=== PATIENT | male | born 1935 | race Caucasian/White ===

== ENCOUNTER → 2018-01-08 | Outpatient (CLI) | payer MEDICARE, OTHER ==
[~2018-01-08] MED LIST: ASPIRIN PO; CO Q-10100 MG PO; DIOVAN PO; FISH OIL PO; GABAPENTIN300 MG PO; HUMALOG; HUMALOG INSULIN PUMP SC; VICODIN 5-5001 EACH PO
--- NOTE | 2018-01-08 17:11 | Diagnostic Imaging Report ---
PROCEDURE: CT CHEST WITHOUT CONTRAST CT scan of the chest WITHOUT intravenous contrast, using standard protocol. TECHNIQUE: The chest was scanned utilizing a multidetector helical scanner from the apex to the level of the adrenal glands. No IV contrast was administered per physician's request. Coronal and sagittal multiplanar reformations were obtained. COMPARISON: DX, CHEST 2 VIEWS, 04/05/2010, 16:19. INDICATIONS: SHORTNESS OF BREATH FINDINGS: Lines/tubes: None. Lungs and Airways: Subpleural reticulation in the upper and lower lobes, with scattered areas of subpleural cystic changes, likely representing focal honeycombing. Associated traction bronchiectasis, worse in the left upper lobe/lingula (series 3, image 67). No pulmonary nodules, masses, or consolidation.. No significant groundglass opacities. Airways are clear, without endobronchial lesions. Pleura: No effusion, or pneumothorax. Heart and mediastinum: Thyroid is unremarkable. Cardiomegaly. Extensive atherosclerotic calcification of the coronary arteries. Mild calcification of the thoracic aorta and arch branches. The aorta is non-aneurysmal. The main pulmonary artery measures approximately 3.5 cm. Lymph nodes: No mediastinal, hilar, or axillary adenopathy. Abdomen: Limited views of the upper abdomen show no abnormality within the visualized spleen and adrenal glands. Areas of decreased attenuation in the hepatic parenchyma, predominantly in the right lobe, likely reflect geographic steatosis. Bones: No aggressive lytic lesions. Multilevel degenerative disc changes in the thoracic spine. Soft tissues are grossly unremarkable. IMPRESSION: 1. findings consistent with pulmonary fibrotic changes. No nodules, masses, or consolidation. 2. Cardiomegaly with extensive calcification of the coronary arteries. Ryan Warner M.D. Dictated by: Ryan Warner M.D. on 01/08/2018 at 17:13 Electronically approved by: Ryan Warner M.D. on 01/08/2018 at 17:13
== END ==
LOC: CT 13:32
PROVIDERS: ATTEND Internal Medicine Critical Care Medicine
DX: R91.8 Other nonspecific abnormal finding of lung field (principal); R06.02 Shortness of breath; I51.7 Cardiomegaly; I25.10 Atherosclerotic heart disease of native coronary artery without angina pectoris
CPT/HCPCS: 71250

== ENCOUNTER 2018-09-17 11:51 | Inpatient (IN) | payer MEDICARE, OTHER ==
[~2018-09-17] VITALS: Ht 177.8 cm; Wt 117.5 kg
--- OUTSIDE RECORDS SUMMARY | 2018-09-17 11:55 | XMS REPORT ---
Author Author [facility] Address Unknown Phone Unavailable Care Team Providers Care Grip Wrapper Name Role Phone CHELLY LIN Unavailable Unavailable Problems This patient has no known problems. Allergies, Adverse Reactions, Alerts This patient has no known allergies or adverse reactions. Medications This patient has no known medications. Results Test Description Test Time Test Comments Text Results Atomic Results Result Comments CT CHEST WO [place] [address] Patient Name: TITI CHEEK JR MR #: [id number] : 1935 Age/Sex: 82/M Req #: [id number] Adm Physician: Ordered by: CHELLY LIN MD Report #: [id number] Location: CT Room/Bed: Procedure: [id number] CT/CT CHEST WO Exam Date: 01/08/18 Exam Time: 1402 REPORT STATUS: Signed PROCEDURE: CT CHEST WITHOUT CONTRAST CT scan of the chest WITHOUT intravenous contrast, using standard protocol. TECHNIQUE: The chest was scanned utilizing a multidetector helical scanner from the apex to the level of the adrenal glands. No IV contrast was administered per physician's request. Coronal and sagittal multiplanar reformations were obtained. COMPARISON: DX, CHEST 2 VIEWS, 04/05/2010, 16:19. INDICATIONS: SHORTNESS OF BREATH FINDINGS: Lines/tubes: None. Lungs and Airways: Subpleural reticulation in the upper and lower lobes, with scattered areas of subpleural cystic changes, likely representing focal honeycombing. Associated traction bronchiectasis, worse in the left upper lobe/lingula (series 3, image 67). No pulmonary nodules, masses, or consolidation.. No significant groundglass opacities. Airways are clear, without endobronchial lesions. Pleura: No effusion, or pneumothorax. Heart and mediastinum: Thyroid is unremarkable. Cardiomegaly. Extensive atherosclerotic calcification of the coronary arteries. Mild calcification of the thoracic aorta and arch branches. The aorta is non-aneurysmal. The main pulmonary artery measures approximately 3.5 cm. Lymph nodes: No mediastinal, hilar, or axillary adenopathy. Abdomen: Limited views of the upper abdomen show no abnormality within the visualized spleen and adrenal glands. Areas of decreased attenuation in the hepatic parenchyma, predominantly in the right lobe, likely reflect geographic steatosis. Bones: No aggressive lytic lesions. Multilevel degenerative disc changes in the thoracic spine. Soft tissues are grossly unremarkable. IMPRESSION: 1. findings consistent with pulmonary fibrotic changes. No nodules, masses, or consolidation. 2. Cardiomegaly with extensive calcification of the coronary arteries. Lyudmila Warner M.D. Dictated by: Lyudmila Warner M.D. on 01/08/2018 at 17:13 Electronically approved by: Lyudmila Warner M.D. on 01/08/2018 at 17:13 Dictated By: LYUDMILA WARNER MD [id number] Transcribed By: MARIE on 01/08/18 1713 COPY TO: CHELLY LIN MD
--- OUTSIDE RECORDS SUMMARY | 2018-09-17 11:55 | XMS REPORT | Clinical Summary ---
Author Author [facility] Address Unknown Phone Unavailable Care Team Providers Care Senior Instrumentation Engineer Name Role Phone Asked, No Pcp PCP Unavailable Allergies No Known Allergies Medications End Date Status Medication Sig Dispensed Refills Start Date Active levothyroxine (SYNTHROID, Take 25 mcg 0 LEVOXYL) 25 mcg tablet by mouth nightly. Active clopidogrel (PLAVIX) 75 Take 75 mg by 0 mg tablet mouth nightly. Active HYDROcodone-acetaminophen Take 1 tablet 0 (NORCO) 5-325 mg per by mouth tablet every 6 (six) hours as needed for moderate pain. Active cetirizine (ZyrTEC) 5 MG Take 5 mg by 0 tablet mouth daily. Active insulin syringe-needle 1 Device 2 60 each 3 U-100 0.3 mL 31 gauge x (two) times a 8 01/09 syringe day. Active blood sugar diagnostic Check BG 4 120 strip 3 strips (FREESTYLE TEST) times a day 8 strip test strips 02/23/2019 Active insulin 70/30 NPH and Inject 40 10 mL 12 regular human (NovoLIN Units under 8 70/30 U-100 Insulin) 100 the skin unit/mL (70-30) injection daily before breakfast. Take 25 units DC before breakfast and 14 units before dinner 02/23/2019 Active atorvastatin (LIPITOR) 80 Take 1 tablet 30 tablet 11 MG tabletIndications: (80 mg total) 8 Chest pain, unspecified by mouth type daily. 02/23/2019 Active metoprolol tartrate Take 1 tablet 60 tablet 11 (LOPRESSOR) 25 mg tablet (25 mg total) 8 by mouth 2 (two) times a day. Active apixaban (ELIQUIS) 5 mg Take 1 tablet 30 tablet 0 tablet (5 mg total) 8 by mouth 2 (two) times a day. 02/23/2019 Active famotidine (PEPCID) 20 MG Take 1 tablet 60 tablet 11 tablet (20 mg total) 8 by mouth 2 (two) times a day. 02/24/2019 Active omega-3 acid ethyl esters Take 2 60 capsule 11 (LOVAZA) 1 gram capsule capsules (2 g 8 total) by mouth daily. 02/23/2018 Discontinued atorvastatin (LIPITOR) 40 Take 40 mg by 0 MG tablet mouth nightly. 02/23/2018 Discontinued insulin NPH (HumuLIN-N) Inject 20 0 100 unit/mL injection Units under the skin every 12 (twelve) hours. 02/23/2018 Discontinued DOCOSAHEXANOIC ACID/EPA Take 1 tablet 0 (FISH OIL ORAL) by mouth daily. 02/23/2018 Discontinued insulin 70/30 NPH and Inject 40 10 mL 12 regular human (NovoLIN Units under 8 70/30 U-100 Insulin) 100 the skin unit/mL (70-30) injection daily before breakfast. Take 25 units DC before breakfast and 14 units before dinner Active Problems Problem Noted Date Transient cerebral ischemia 02/22/2018 Essential hypertension 02/22/2018 Type 2 diabetes mellitus 02/22/2018 Chest pain 05/12/2017 Resolved Problems Problem Noted Date Resolved Date Right sided weakness 02/21/2018 02/23/2018 Encounters Care Team Description Date Type Specialty Kumar Rojas NP 04/12/2018 Refill Endocrinology Nestor Bradford MD 03/11/2018 Refill Neurology John Espinosa MD Shehata, Mohamed M., MD Chest pain, unspecified type (Primary Dx); Right sided weakness; Numbness; Transient cerebral ischemia, unspecified type; Essential hypertension 02/21/2018 Hospital Neurology - Encounter 02/23/2018 Jonathan Richardson MD Diabetes mellitus without complication (Primary Dx) 12/21/2017 Lab Lab Jonathan Richardson MD Iron deficiency (Primary Dx); 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 Lab Lab Tracey Richardson DPM Pain in extremity, unspecified extremity 12/14/2017 Hospital Radiology Encounter Tracey Richardson DPM Pain in extremity, unspecified extremity 12/14/2017 Hospital Radiology Encounter Tracey Richardson, DPJaspal Pain in extremity, unspecified extremity (Primary Dx) 12/14/2017 Transcribe Access Orders after 09/16/2017 Immunizations Name Dates Previously Given Next Due FLUCELVAX QUAD PF (0.5mL 05/14/2017 syringe) Social History Date Tobacco Use Types Packs/Day Years Used Never Smoker Alcohol Use Drinks/Week oz/Week Comments Yes Sex Assigned at Date Recorded Not on file Industry Job Start Date Occupation Not on file Not on file Not on file Travel End Travel History Travel Start No recent travel history available. Last Filed Vital Signs Time Taken Vital Sign Reading 02/23/2018 11:40 AM CDT Blood Pressure 170/84 02/23/2018 11:40 AM CDT Pulse 71 02/23/2018 11:40 AM CDT Temperature 36.4 C (97.5 F) 02/23/2018 11:40 AM CDT Respiratory Rate 18 02/23/2018 11:40 AM CDT Oxygen Saturation 95% - Inhaled Oxygen - Concentration 02/22/2018 12:15 AM CDT Weight 110 kg (242 lb) 02/22/2018 12:15 AM CDT Height 179.1 cm (5' 10.5") 02/22/2018 12:15 AM CDT Body Mass Index 34.23 Plan of Treatment Health Maintenance Due Date Last Done Comments DIABETIC RETINAL EYE EXAM 1935 DIABETIC FOOT EXAM 1945 URINE MICROALBUMIN 1947 SHINGLES VACCINES (1 of 1987 2) PNEUMOCOCCAL 2002 POLYSACCHARIDE VACCINE AGE 65 AND OVER PNEUMOCOCCAL-13 2002 INFLUENZA VACCINE 03/27/2018 05/14/2017 Procedures Comments Procedure Name Priority Date/Time Associated Diagnosis POC GLUCOSE Routine 02/23/2018 11:38 AM CDT POC GLUCOSE Routine 02/23/2018 8:50 AM CDT ZZESTIMATED GFR Routine 02/23/2018 4:22 AM CDT BASIC METABOLIC PANEL Routine 02/23/2018 4:22 AM CDT HC COMPLETE BLD COUNT Routine 02/23/2018 W/AUTO DIFF 4:22 AM CDT MAGNESIUM LEVEL Routine 02/23/2018 4:22 AM CDT POC GLUCOSE Routine 02/22/2018 9:03 PM CDT POC GLUCOSE Routine 02/22/2018 3:52 PM CDT POC GLUCOSE Routine 02/22/2018 12:12 PM CDT ECHOCARDIOGRAM 2D Routine 02/22/2018 COMPLETE W MMODE SPECTRAL 10:52 AM CDT COLOR DOPPLER ([id number]) MRI BRAIN WO CONTRAST STAT 02/22/2018 10:13 AM CDT SYPHILIS TREPONEMAL IGG Routine 02/22/2018 8:53 AM CDT FOLATE LEVEL Routine 02/22/2018 8:52 AM CDT VITAMIN B12 LEVEL Routine 02/22/2018 8:52 AM CDT POC GLUCOSE Routine 02/22/2018 7:55 AM CDT SYPHILIS TREPONEMAL IGG Routine 02/22/2018 6:40 AM CDT FOLATE LEVEL Routine 02/22/2018 6:40 AM CDT VITAMIN B12 LEVEL STAT 02/22/2018 6:40 AM CDT POC GLUCOSE Routine 02/22/2018 6:31 AM CDT AST (SGOT) Routine 02/22/2018 4:00 AM CDT MAGNESIUM LEVEL Routine 02/22/2018 4:00 AM CDT ZZESTIMATED GFR Routine 02/22/2018 4:00 AM CDT T3, FREE Routine 02/22/2018 4:00 AM CDT T4, FREE Routine 02/22/2018 4:00 AM CDT THYROID STIMULATING Routine 02/22/2018 HORMONE 4:00 AM CDT LIPID PANEL Routine 02/22/2018 4:00 AM CDT HEMOGLOBIN A1C Routine 02/22/2018 4:00 AM CDT BASIC METABOLIC PANEL Routine 02/22/2018 4:00 AM CDT HC COMPLETE BLD COUNT Routine 02/22/2018 W/AUTO DIFF 4:00 AM CDT POC GLUCOSE Routine 02/22/2018 12:34 AM CDT XR CHEST 1 VW PORTABLE STAT 02/21/2018 11:38 PM CDT C-REACTIVE PROTEIN Routine 02/21/2018 10:42 PM CDT SEDIMENTATION RATE Routine 02/21/2018 10:42 PM CDT THYROID STIMULATING Routine 02/21/2018 HORMONE 10:42 PM CDT HOMOCYSTINE, PLASMA Routine 02/21/2018 10:42 PM CDT HEMOGLOBIN A1C Routine 02/21/2018 10:42 PM CDT LIPID PANEL Routine 02/21/2018 10:[address] ANGIOGRAM HEAD W WO STAT 02/21/2018 CONTRAST 10:[address] ANGIOGRAM NECK W WO STAT 02/21/2018 CONTRAST 10:38 PM CDT URINE DRUGS OF ABUSE STAT 02/21/2018 SCREEN 10:38 PM CDT URINALYSIS SCREEN AND Routine 02/21/2018 MICROSCOPY, WITH REFLEX 10:38 PM CDT TO CULTURE ECG 12-LEAD STAT 02/21/2018 10:37 PM CDT URINE CULTURE Routine 02/21/2018 10:[address] HEAD WO CONTRAST STAT 02/21/2018 10:11 PM CDT POC GLUCOSE Routine 02/21/2018 10:09 PM CDT ZZESTIMATED GFR Routine 02/21/2018 10:09 PM CDT B NATRIURETIC PEPTIDE Routine 02/21/2018 10:09 PM CDT TROPONIN Routine 02/21/2018 10:09 PM CDT COMPREHENSIVE METABOLIC Routine 02/21/2018 PANEL 10:09 PM CDT PARTIAL THROMBOPLASTIN Routine 02/21/2018 TIME (PTT) 10:09 PM CDT PROTHROMBIN TIME WITH INR Routine 02/21/2018 10:09 PM CDT HC COMPLETE BLD COUNT Routine 02/21/2018 W/AUTO DIFF 10:09 PM CDT HEMOGLOBIN A1C Routine 12/21/2017 Diabetes mellitus without 12:23 PM CDT complication ZZESTIMATED GFR Routine 12/17/2017 10:50 AM CDT CBC HEMOGRAM Routine 12/17/2017 Iron deficiency 10:50 AM CDT 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 POC glucose 142 (H) 65 - 99 mg/dL [facility] DEPARTMENT OF Comment: [facility] Notified RN GENOMIC MEDICINE Meter ID: [id number] Street Light Lamp Cleaner: Jin Garcia Performing Organization Address City/[facility]/Zipcode Phone Number [address] [address] PATHOLOGY AND GENOMIC MEDICINE * Estimated GFR (02/23/2018 4:22 AM CDT) Only the most recent of 4 results within the time period is included. GFR Non Af Amer 81 mL/min/1.73 m2 [facility] DEPARTMENT OF PATHOLOGY AND GENOMIC MEDICINE GFR Af Amer >90 mL/min/1.73 m2 [facility] DEPARTMENT OF Comment: PATHOLOGY AND Chronic kidney disease: <60 GENOMIC MEDICINE mL/min/1.73m2 Kidney failure: <15 mL/min/1.73m2 The estimated GFR is calculated from the IDMS-traceable Modification of Diet in Renal Disease Equation. The accuracy of the calculation is poor when the creatinine is normal. Calculated values >90 mL/min/1.73m2 are not reported. This equation has not been validated in children (<18 years), women, the elderly (>70 years), or ethnic groups other than Caucasians and Americans. Specimen Plasma specimen Performing Organization Address City/State/Zipcode Phone Number [address] [address] PATHOLOGY AND [facility] * CBC with platelet and differential (02/23/2018 4:22 AM CDT) Only the most recent of 3 results within the time period is included. WBC 9.31 4.50 - 11.00 k/uL [facility] DEPARTMENT OF PATHOLOGY AND GENOMIC MEDICINE RBC 4.84 4.40 - 6.00 m/uL [facility] DEPARTMENT OF PATHOLOGY AND GENOMIC MEDICINE HGB 15.5 14.0 - 18.0 g/dL [facility] DEPARTMENT OF PATHOLOGY AND GENOMIC MEDICINE HCT 45.3 41.0 - 51.0 % [facility] DEPARTMENT OF PATHOLOGY AND GENOMIC MEDICINE MCV 93.6 82.0 - 100.0 fL [facility] DEPARTMENT OF PATHOLOGY AND GENOMIC MEDICINE MCH 32.0 27.0 - 34.0 pg [facility] DEPARTMENT OF PATHOLOGY AND GENOMIC MEDICINE MCHC 34.2 31.0 - 37.0 g/dL [facility] DEPARTMENT OF PATHOLOGY AND GENOMIC MEDICINE RDW - SD 44.5 37.0 - 55.0 fL [facility] DEPARTMENT OF PATHOLOGY AND GENOMIC MEDICINE MPV 9.6 8.8 - 13.2 fL [facility] DEPARTMENT OF PATHOLOGY AND GENOMIC MEDICINE Platelet count 186 150 - 400 k/uL [facility] DEPARTMENT OF PATHOLOGY AND GENOMIC MEDICINE Nucleated RBC 0.00 /100 WBC [facility] DEPARTMENT OF PATHOLOGY AND GENOMIC MEDICINE Neutrophils 54.4 39.0 - 69.0 % [facility] DEPARTMENT OF PATHOLOGY AND GENOMIC MEDICINE Lymphocytes 33.8 25.0 - 45.0 % [facility] DEPARTMENT OF PATHOLOGY AND GENOMIC MEDICINE Monocytes 8.9 0.0 - 10.0 % [facility] DEPARTMENT OF PATHOLOGY AND GENOMIC MEDICINE Eosinophils 1.9 0.0 - 5.0 % [facility] DEPARTMENT OF PATHOLOGY AND GENOMIC MEDICINE Basophils 0.6 0.0 - 1.0 % [facility] DEPARTMENT OF PATHOLOGY AND GENOMIC MEDICINE Immature granulocytes 0.4Comment: "Immature 0.0 - 1.0 % [facility] DEPARTMENT OF granulocytes" (promyelocytes, PATHOLOGY AND myelocytes, metamyelocytes) GENOMIC MEDICINE Specimen Blood Performing Organization Address City/[facility]/[place] [address] PATHOLOGY AND GENOMIC [facility] * Magnesium level (02/23/2018 4:22 AM CDT) Only the most recent of 2 results within the time period is included. Magnesium 2.3 1.6 - 2.4 mg/dL [facility] DEPARTMENT OF PATHOLOGY AND GENOMIC MEDICINE Specimen Plasma specimen Performing Organization Address City/[facility] [place] [address] PATHOLOGY AND [facility] * Basic metabolic panel (02/23/2018 4:22 AM CDT) Only the most recent of 3 results within the time period is included. Sodium 138 135 - 148 mEq/L [facility] DEPARTMENT OF PATHOLOGY AND GENOMIC MEDICINE Potassium 3.8 3.5 - 5.0 mEq/L [facility] DEPARTMENT OF PATHOLOGY AND GENOMIC MEDICINE Chloride 101 98 - 112 mEq/L [facility] DEPARTMENT OF PATHOLOGY AND GENOMIC MEDICINE CO2 23 (L) 24 - 31 mEq/L [facility] DEPARTMENT OF PATHOLOGY AND GENOMIC MEDICINE Anion gap 14@ANIO 7 - 15 mEq/L [facility] DEPARTMENT OF PATHOLOGY AND GENOMIC MEDICINE BUN 21 8 - 23 mg/dL [facility] DEPARTMENT OF PATHOLOGY AND GENOMIC MEDICINE Creatinine 0.9 0.7 - 1.2 mg/dL [facility] DEPARTMENT OF PATHOLOGY AND GENOMIC MEDICINE Glucose 131 (H) 65 - 99 mg/dL [facility] DEPARTMENT OF PATHOLOGY AND GENOMIC MEDICINE Calcium 9.2 8.8 - 10.2 mg/dL [facility] DEPARTMENT OF PATHOLOGY AND GENOMIC MEDICINE Specimen Plasma specimen Performing Organization Address City/State/Zipcode Phone Number [facility] DEPARTMENT OF [address] [place] [id number] PATHOLOGY AND GENOMIC MEDICINE * Echocardiogram complete w contrast and 3D if needed (02/22/2018 10:52 AM CDT) Narrative Performed At [facility] Echocardiography Report [id number] [facility], [facility] [address], [place] [address] Pat.Name:TITI MAY Pat.ID:[id number] St.Date: 02/22/2018 Refer.MD:NAZIA MOREL MD Exam Time: 11:25:00 AM Study Type:Routine Echo Height:70.47in Weight:242lb BSA: 2.28 m2 DOBAge:1935,82Y Sex: MALEBP:125/63 HR:63 bpmSonogrphr: DAYDAY [place] Pat. Stat.:Inpatient Room:[facility] Study Status:Final Echo Event ID:[id number] Order ID:[id number] Reason for Study:Chest Pain Procedures:2D Echo, Colorflow Doppler, Intravenous Optison Contrast Race:C SUMMARY: LV EF is moderately to severely depressed. Estimated EF is 25-29%. RV systolic function is normal. Diastolic dysfunction Grade I (Mild): Impaired relaxation with normal LV filling pressures. FINDINGS: LV: LV size is normal. There is moderate concentric LV hypertrophy.LV EF is moderately to severely depressed. Globalhypokinesis. Septal motion is paradoxical secondary toLBBB or conduction abnormality. Estimated EF is 25-29%. RV: RV size is normal. RV systolic function is normal. LA: LA volume is upper limits of normal. RA: RA size is normal. AO: Aortic root diameter is normal. ABIGAIL: There is an anterior space consistent with a prominent epicardialfat pad. AV: No structural AV abnormalities noted. MV: No structural MV abnormalities noted. PV: No structural PV abnormalities noted. TV: No structural TV abnormalities noted. Bashir: Diastolic dysfunction Grade I (Mild): Impaired relaxation withnormal LV filling pressures. Other:Insufficient TR jet to estimate PA systolic pressure. MEASUREMENTS: 2D Parasternal Long Deshler LVIDd5.6 cmIndex2.5 cm/m Ao Rtd 3.3 cm Index1.5 cm/m LVIDs4.8 cm LV Utnt370.9 g(122-174) LV%fs 15.3 % LVM Xprkv319.3 g/m2 IVSd 1.2 cmRWT0.5 LVPWd1.3 cm LA Sng Plane LA Area 23.6 cm2(8.8-23.4) LA Vol78.4 ml Index34.4 ml/m LA LngAx 5.9 cm Signed 02/22/2018 12:00 PM Clint Hand M.D. Procedure Note Interface, Radiology Results In - 02/22/2018 12:01 PM CDT Echocardiography Report [address] [place] [address] Pat.Name: TITI MAY Pat.ID: [id number] .Date: 02/22/2018 Refer.MD: NAZIA MOREL MD Exam Time: 11:25:00 AM Study Type:Routine Echo Height: 70.47in Weight: 242lb BSA: 2.28 m2 Age: 4 1935,82Y Sex: MALE BP: 125/63 HR: 63 bpm Sonogrphr: [place]DAY [place] Pat. Stat.:Inpatient Room: [facility] Study Status:Final Echo Event ID:[id number] Order ID: [id number] Reason for Study:Chest Pain Procedures:2D Echo, Colorflow Doppler, Intravenous Optison Contrast Race: C SUMMARY: LV EF is moderately to severely depressed. Estimated EF is 25-29%. RV systolic function is normal. Diastolic dysfunction Grade I (Mild): Impaired relaxation with normal LV filling pressures. FINDINGS: LV: LV size is normal. There is moderate concentric LV hypertrophy. LV EF is moderately to severely depressed. Global hypokinesis. Septal motion is paradoxical secondary to LBBB or conduction abnormality. Estimated EF is 25-29%. RV: RV size is normal. RV systolic function is normal. LA: LA volume is upper limits of normal. RA: RA size is normal. AO: Aortic root diameter is normal. ABIGAIL: There is an anterior space consistent with a prominent epicardial fat pad. AV: No structural AV abnormalities noted. MV: No structural MV abnormalities noted. PV: No structural PV abnormalities noted. TV: No structural TV abnormalities noted. Bashir: Diastolic dysfunction Grade I (Mild): Impaired relaxation with normal LV filling pressures. Other: Insufficient TR jet to estimate PA systolic pressure. MEASUREMENTS: 2D Parasternal Long Deshler LVIDd 5.6 cm Index 2.5 cm/m Ao Rtd 3.3 cm Index 1.5 cm/m LVIDs 4.8 cm LV Mass 303.9 g (122-174) LV%fs 15.3 % LVM Index 133.3 g/m2 IVSd 1.2 cm RWT 0.5 LVPWd 1.3 cm LA Sng Plane LA Area 23.6 cm2 (8.8-23.4) LA Vol 78.4 ml Index 34.4 ml/m LA LngAx 5.9 cm Signed 02/22/2018 12:00 PM Clint Hand M.D. Performing Organization Address [facility]/Zipcode Phone Number [facility] [address] [place] [address] * MRI Brain Wo Contrast (02/22/2018 10:13 AM CDT) Narrative Performed At [facility] EXAMINATION:MRI BRAIN WO CONTRAST CLINICAL HISTORY:Strokefollow up, CVA TIA COMPARISON: CT brain exam dated 02/21/2018. FINDINGS: Noncontrast MRI of the brain is interpreted. Diffusion imaging demonstrates no abnormal restricted diffusion. Minimal nonspecific T2 FLAIR signal changes in the cerebral white matter in keeping with minimal chronic small vessel ischemic change. No extra-axial collection or mass effect is seen. No hemorrhage is identified. The major vascular flow-voids are preserved. IMPRESSION: No evidence of recent infarct or other acute intracranial abnormality. [id number] Procedure Note Interface, Radiology Results Incoming - 02/22/2018 10:23 AM CDT EXAMINATION: MRI BRAIN WO CONTRAST CLINICAL HISTORY: Stroke follow up, CVA TIA COMPARISON: CT brain exam dated 02/21/2018. FINDINGS: Noncontrast MRI of the brain is interpreted. Diffusion imaging demonstrates no abnormal restricted diffusion. Minimal nonspecific T2 FLAIR signal changes in the cerebral white matter in keeping with minimal chronic small vessel ischemic change. No extra-axial collection or mass effect is seen. No hemorrhage is identified. The major vascular flow-voids are preserved. IMPRESSION: No evidence of recent infarct or other acute intracranial abnormality. [id number] Performing Organization Address [facility] Phone Number [facility] [address] [place] [address] * Syphilis treponemal IgG (02/22/2018 8:53 AM CDT) Only the most recent of 2 results within the time period is included. Syphilis treponemal IgG Non-reactiveComment: Non-reactive [facility] DEPARTMENT OF Non-reactive: No serological PATHOLOGY AND evidence of Syphilis infection GENOMIC MEDICINE Specimen Serum Performing Organization Address City/[facility] [place] [address] PATHOLOGY AND [facility] * Folate level (02/22/2018 8:52 AM CDT) Only the most recent of 2 results within the time period is included. Folate 16.0 4.8 - 24.2 ng/mL [facility] DEPARTMENT OF PATHOLOGY AND GENOMIC MEDICINE Specimen Serum Performing Organization Address City/[facility] Phone Number [address] [address] PATHOLOGY AND [facility] * Vitamin B12 level (02/22/2018 8:52 AM CDT) Only the most recent of 2 results within the time period is included. Vitamin B12 294 211 - 946 pg/mL [facility] DEPARTMENT OF Comment: PATHOLOGY AND Significant overlap exists GENOMIC MEDICINE between normal and deficiency states. However, most patients with deficiencies will have Serum B12 <200 pg/mL. Specimen Serum Performing Organization Address [facility] Phone Number [address] [address] PATHOLOGY AND [facility] * T3, free (02/22/2018 4:00 AM CDT) T3, free 2.7 2.4 - 4.2 pg/mL [facility] Comment: REFERENCE INTERVAL: Triiodothyronine, Free (Free T3) Access complete set of age- and/or gender-specific reference intervals for this test in the [facility] Test Directory ([employer]). Performed by [employer], [address] [place] [address] [email or web address], Ryder Chow MD - Lab. Director Specimen Serum Performing Organization Address [facility] Number [facility] [address] [address] * AST (SGOT) (02/22/2018 4:00 AM CDT) AST 20 10 - 50 U/L [facility] DEPARTMENT OF PATHOLOGY AND GENOMIC MEDICINE Specimen Plasma specimen Performing Organization Address [facility] Phone Number [address] [address] PATHOLOGY AND [facility] * Thyroid stimulating hormone (02/22/2018 4:00 AM CDT) Only the most recent of 2 results within the time period is included. TSH 2.55 0.27 - 4.20 uIU/mL [facility] DEPARTMENT OF PATHOLOGY AND GENOMIC MEDICINE Specimen Plasma specimen Performing Organization Address City/[facility] [place] [address] PATHOLOGY AND [facility] * T4, free (02/22/2018 4:00 AM CDT) T4, free 1.1 0.9 - 1.7 ng/dL [facility] DEPARTMENT OF PATHOLOGY AND [facility] Specimen Plasma specimen Performing Organization Address [facility] [place] [address] PATHOLOGY AND [facility] * Hemoglobin A1c (02/22/2018 4:00 AM CDT) Only the most recent of 3 results within the time period is included. Hemoglobin A1C 8.9 (H) 4.0 - 5.6 % [facility] DEPARTMENT OF Comment: PATHOLOGY AND HbA1c cutoffs for diagnosing GENOMIC MEDICINE diabetes: 4.0% - 5.6%=normal 5.7% - 6.4%=increased risk for diabetes (prediabetes) >=6.5%=diabetes Goals for glycemic control (ADA 2016) < 7.0%Target for non adults with diabetes. More or less stringent targets may be appropriate for individual patients. <7.5% Target for Children and adolescents with type 1 diabetes. Specimen Blood Performing Organization Address [facility] Phone Number [facility] [place] [place] [address] PATHOLOGY AND [employer] MEDICINE * Lipid panel (02/22/2018 4:00 AM CDT) Only the most recent of 2 results within the time period is included. Cholesterol 204 (H) <200 mg/dL [facility] DEPARTMENT OF PATHOLOGY AND GENOMIC MEDICINE Triglycerides 240 (H) <150 mg/dL [facility] DEPARTMENT OF PATHOLOGY AND GENOMIC MEDICINE HDL cholesterol 34 (L) >40 mg/dL [facility] DEPARTMENT OF PATHOLOGY AND GENOMIC MEDICINE LDL cholesterol 140 (H)Comment: Result <100 mg/dL [facility] DEPARTMENT OF obtained by direct LDL PATHOLOGY AND measurement GENOMIC MEDICINE Lipid panel SeeBelow [facility] DEPARTMENT OF interpretation Comment: PATHOLOGY AND Total Cholesterol GENOMIC MEDICINE (mg/dL) <200 Desirable 200-239Borderline -high >=240High Triglycerides (mg/dL) <150 Normal 150-199Borderline -high 200-499High >=500Very high HDL Cholesterol (mg/dL) <40Low (male) <40Low (female) LDL Cholesterol (mg/dL) <100 Optimal 100-129Near or above optimal 130-159Borderline -high 160-189High >=190Very high Risk Catergories that modify LDL goals. Risk Catergories LDL goal (mg/dL) CHD and CHD risk equivalent<100 (10-year risk >20%) Multiple (2+) risk factors <130 (10-year risk=<20%) 0-1 risk factors <160 (<10-year risk) Defining levels of lipids in metabolic syndrome Triglycerides >=150 mg/dL HDL Cholesterol Men <40 mg/dL Women <40 mg/dL Non-HDL cholesterol is a second target for therapy in persons with high triglycerides (>=200 mg/dL) Specimen Plasma specimen Performing Organization Address [facility] Phone Number [facility] DEPARTMENT OF [address] [place] [address] PATHOLOGY AND GENOMIC MEDICINE * XR Chest 1 Vw Portable (02/21/2018 11:38 PM CDT) Narrative Performed At Examination: XR CHEST 1 VW PORTABLE [facility] Clinical history: Chest Pain Comparison: August 11, 2017 Impression: 1. The cardiac silhouette is mildly enlarged, though vasculature is within normal limits. 2. There is no confluent infiltrate or effusion. 3. There is no acute osseous pathology. [facility]-[id number] Procedure Note Interface, Radiology Results Incoming - 02/21/2018 11:44 PM CDT Examination: XR CHEST 1 VW PORTABLE Clinical history: Chest Pain Comparison: August 11, 2017 Impression: 1. The cardiac silhouette is mildly enlarged, though vasculature is within normal limits. 2. There is no confluent infiltrate or effusion. 3. There is no acute osseous pathology. [facility]-[id number] Performing Organization Address [facility] Phone Number [facility] [address] [place] [address] * Homocystine, plasma (02/21/2018 10:42 PM CDT) Homocysteine 12.4 0.0 - 15.0 umol/L [facility] DEPARTMENT OF Comment: PATHOLOGY AND The risk for coronary vascular GENOMIC MEDICINE disease increases progressively with homocysteine concentration.A 3.4 times greater risk is associated with a homocysteine concentration of greater than 15.8 umol/L as compared to a concentration below 14.1 umol/L. Specimen Plasma specimen Performing Organization Address City/[facility]/[place] [address] PATHOLOGY AND GENOMIC MEDICINE * Sedimentation rate (02/21/2018 10:42 PM CDT) Sedimentation rate 7 0 - 10 mm/hr [facility] DEPARTMENT PATHOLOGY AND GENOMIC MEDICINE Specimen Blood Performing Organization Address [facility] [place] [address] PATHOLOGY AND GENOMIC MEDICINE * C-reactive protein (02/21/2018 10:42 PM CDT) CRP <0.30 0.00 - 0.50 mg/dL [facility] PATHOLOGY AND GENOMIC MEDICINE Specimen Plasma specimen Performing Organization Address [facility] Phone Number [facility] [place] [address] PATHOLOGY AND [facility] MEDICINE * CTA Head W Wo Contrast (02/21/2018 10:39 PM CDT) Narrative Performed At EXAMINATION:CT ANGIOGRAM HEAD W WO CONTRAST [facility] CLINICAL HISTORY:dizziness COMPARISON:Head CT on 02/21/2018. TECHNIQUE: Head CTA with multiplanar MIP and volumetric rendering after bolus intravenous iodinated contrast administration performed using radiation dose reduction techniques.Technical factors are evaluated and adjusted to ensure appropriate moderation of exposure.Automated dose management technology is applied to adjust radiation exposure while achieving a diagnostic quality image. FINDINGS: The anterior circulation is dominant with bilateral -type manager hospice with origins from prominent posterior communicating arteries. There is normal contrast enhancement with no significant stenosis or occlusion along bilateral intracranial ICAs, ACAs, MCAs, and. The anterior and posterior communicating arteries are unremarkable. The posterior circulation is hypoplastic with the nondominant left vertebral artery terminating into the left PICA. There is no significant stenosis or occlusion along bilateral vertebral arteries, basilar artery, and cerebellar arteries. 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 There is no evidence of cerebral aneurysm in the proximal [place]. There is no evidence of perfusion-weighted defect on CTA source images. IMPRESSION: 1. Normal variant [place] anatomy as described. 2. No significant stenosis or occlusion in the proximal [place]. 3. No evidence of perfusion-weighted defect on CTA source images. [facility]-[id number] Procedure Note Interface, Radiology Results Incoming - 02/21/2018 10:48 PM CDT EXAMINATION: CT ANGIOGRAM HEAD W WO CONTRAST CLINICAL HISTORY: dizziness COMPARISON: Head CT on 02/21/2018. TECHNIQUE: Head CTA with multiplanar MIP and volumetric rendering after bolus intravenous iodinated contrast administration performed using radiation dose reduction techniques. Technical factors are evaluated and adjusted to ensure appropriate moderation of exposure. Automated dose management technology is applied to adjust radiation exposure while achieving a diagnostic quality image. FINDINGS: The anterior circulation is dominant with bilateral -type manager hospice with origins from prominent posterior communicating arteries. There is normal contrast enhancement with no significant stenosis or occlusion along bilateral intracranial ICAs, ACAs, MCAs, and. The anterior and posterior communicating arteries are unremarkable. The posterior circulation is hypoplastic with the nondominant left vertebral artery terminating into the left PICA. There is no significant stenosis or occlusion along bilateral vertebral arteries, basilar artery, and cerebellar arteries. 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 There is no evidence of cerebral aneurysm in the proximal [place]. There is no evidence of perfusion-weighted defect on CTA source images. IMPRESSION: 1. Normal variant [place] anatomy as described. 2. No significant stenosis or occlusion in the proximal [place]. 3. No evidence of perfusion-weighted defect on CTA source images. [facility]-[id number] Performing Organization Address City/State/Zipcode Phone Number [facility] [address] [place] [address] * CTA Neck W Wo Contrast (02/21/2018 10:38 PM CDT) Narrative Performed At EXAMINATION:CT ANGIOGRAM NECK W WO [facility] CLINICAL H[facility]ORY:dizziness COMPARISON:Concurrent head CTA on 02/21/2018 TECHNIQUE: Neck CTA with multiplanar MIP and volumetric rendering after bolus intravenous iodinated contrast administration performed using radiation dose reduction techniques.Technical factors are evaluated and adjusted to ensure appropriate moderation of exposure.Automated dose management technology is applied to adjust radiation exposure while achieving a diagnostic quality image. FINDINGS: There is no significant stenosis along the aortic arch and its proximal branch arteries. There is mild mixed calcified-noncalcified atherosclerosis along bilateral carotid bifurcations with no significant stenosis along bilateral common, internal, and external carotid arteries. There is no significant stenosis or occlusion along bilateral vertebral arteries. The right vertebral artery is dominant. The thyroid gland is small. There are postoperative changes from C5-6 anterior discectomy and fusion. No evidence of hardware failure or loosening. Residual spondylosis. Visualized lungs are unremarkable. IMPRESSION: 1. Mild mixed calcified-noncalcified atherosclerosis along bilateral carotid bifurcations with no significant stenosis. 2. No significant vertebral artery stenosis. [facility]-[id number] Procedure Note [facility], Radiology Results Incoming - 02/21/2018 10:56 PM CDT EXAMINATION: CT ANGIOGRAM NECK W WO CONTRAST CLINICAL HISTORY: dizziness COMPARISON: Concurrent head CTA on 02/21/2018 TECHNIQUE: Neck CTA with multiplanar MIP and volumetric rendering after bolus intravenous iodinated contrast administration performed using radiation dose reduction techniques. Technical factors are evaluated and adjusted to ensure appropriate moderation of exposure. Automated dose management technology is applied to adjust radiation exposure while achieving a diagnostic quality image. FINDINGS: There is no significant stenosis along the aortic arch and its proximal branch arteries. There is mild mixed calcified-noncalcified atherosclerosis along bilateral carotid bifurcations with no significant stenosis along bilateral common, internal, and external carotid arteries. There is no significant stenosis or occlusion along bilateral vertebral arteries. The right vertebral artery is dominant. The thyroid gland is small. There are postoperative changes from C5-6 anterior discectomy and fusion. No evidence of hardware failure or loosening. Residual spondylosis. Visualized lungs are unremarkable. IMPRESSION: 1. Mild mixed calcified-noncalcified atherosclerosis along bilateral carotid bifurcations with no significant stenosis. 2. No significant vertebral artery stenosis. [facility]-[id number] Performing Organization Address City/State/Zipcode Phone Number [facility] [address] [place] [address] * Urinalysis screen and microscopy, with reflex to culture (02/21/2018 10:38 PM CDT) Specimen site Clean catch [facility] DEPARTMENT OF PATHOLOGY AND GENOMIC MEDICINE Color, UA Straw [facility] DEPARTMENT OF PATHOLOGY AND GENOMIC MEDICINE Appearance, UA Clear [facility] DEPARTMENT OF PATHOLOGY AND GENOMIC MEDICINE Specific gravity, UA 1.019 1.001 - 1.035 [facility] DEPARTMENT OF PATHOLOGY AND GENOMIC MEDICINE pH, UA 6.0 5.0 - 8.5 [facility] DEPARTMENT OF PATHOLOGY AND GENOMIC MEDICINE Protein, UA Negative Negative [facility] DEPARTMENT OF PATHOLOGY AND GENOMIC MEDICINE Glucose, UA Negative Negative [facility] DEPARTMENT OF PATHOLOGY AND GENOMIC MEDICINE Ketones, UA Negative Negative [facility] DEPARTMENT OF PATHOLOGY AND GENOMIC MEDICINE Bilirubin, UA Negative Negative [facility] DEPARTMENT OF PATHOLOGY AND GENOMIC MEDICINE Blood, UA Negative Negative [facility] DEPARTMENT OF PATHOLOGY AND GENOMIC MEDICINE Nitrite, UA Negative Negative [facility] DEPARTMENT OF PATHOLOGY AND GENOMIC MEDICINE Urobilinogen, UA <2.0 <2.0 [facility] DEPARTMENT OF PATHOLOGY AND GENOMIC MEDICINE Leukocyte esterase, UA Negative Negative [facility] DEPARTMENT OF PATHOLOGY AND GENOMIC MEDICINE WBC, UA 1 0 - 1 /HPF [facility] DEPARTMENT OF PATHOLOGY AND GENOMIC MEDICINE RBC, UA <1 0 - 5 /HPF [facility] DEPARTMENT OF PATHOLOGY AND GENOMIC MEDICINE Bacteria, UA None seen None seen [facility] DEPARTMENT OF PATHOLOGY AND GENOMIC MEDICINE Yeast, UA None seen [facility] DEPARTMENT OF PATHOLOGY AND GENOMIC MEDICINE Yeast with pseudohyphae, None seen [facility] DEPARTMENT OF UA PATHOLOGY AND GENOMIC MEDICINE Specimen Urine Performing Organization Address City/State/[facility] Phone Number [facility] DEPARTMENT OF [address] [place] [address] PATHOLOGY AND GENOMIC MEDICINE * Urine drugs of abuse screen (02/21/2018 10:38 PM CDT) Amphetamine screen, urine Negative [facility] DEPARTMENT OF PATHOLOGY AND GENOMIC MEDICINE Barbiturate screen, urine Negative [facility] DEPARTMENT OF PATHOLOGY AND GENOMIC MEDICINE Benzodiazepine screen, Negative [facility] DEPARTMENT OF urine PATHOLOGY AND GENOMIC MEDICINE Cannabinoid screen, urine Negative [facility] DEPARTMENT OF PATHOLOGY AND GENOMIC MEDICINE Cocaine screen, urine Negative [facility] DEPARTMENT OF PATHOLOGY AND GENOMIC MEDICINE Methadone metabolite Negative [facility] DEPARTMENT OF (EDDP), urine PATHOLOGY AND GENOMIC MEDICINE Opiates screen, urine Negative [facility] DEPARTMENT OF PATHOLOGY AND GENOMIC MEDICINE Oxycodone screen, urine Negative [facility] DEPARTMENT OF PATHOLOGY AND GENOMIC MEDICINE Phencyclidine screen, Negative [facility] DEPARTMENT OF urine PATHOLOGY AND GENOMIC MEDICINE Tricyclic screen, urine Negative [facility] DEPARTMENT OF Comment: PATHOLOGY AND Drug screen minimum GENOMIC MEDICINE concentration of detectability Amphetamines 1000 ng/mL Barbiturates 200 ng/mL Benzodiazepines 300 ng/mL Cocaine 300 ng/mL Methadone 300 ng/mL Opiates 300 ng/mL Oxycodone 300 ng/mL Phencyclidine 25 ng/mL Cannabinoids 50 ng/mL Tricyclics 1000 ng/mL Negative test results indicates presumptive evidence of lack of clinically significant drug concentration in this urine specimen. Positive test results are presumptive evidence of clinically significant drug concentration in this urine specimen. Testing performed for medical purposes only. Specimen Urine Performing Organization Address [facility] Phone Number [facility] DEPARTMENT OF [address] [place] [phone] PATHOLOGY AND GENOMIC MEDICINE * ECG 12 lead (02/21/2018 10:37 PM CDT) Ventricular rate 99 [facility] MUSE Atrial rate 99 [facility] MUSE QRSD interval 158 [facility] MUSE QT interval 380 [facility] QTC interval 487 [facility] MUSE P axis 1 16 [facility] MUSE QRS axis 1 -43 [facility] MUSE T wave axis 119 [facility] MUSE EKG impression Sinus rhythm with 1st degree [facility] MUSE AV block with fusion complexes and premature atrial complexes-Left axis deviation-Left bundle branch block-Abnormal ECG-In automated comparison with ECG of 12-MAY-2017 10:57,-fusion complexes are now present-premature ventricular complexes are no longer present-premature atrial complexes are now present-RI interval has decreased- Performing Organization Address [facility] Phone Number [address] [address] * Urine culture (02/21/2018 10:36 PM CDT) Urine culture SEE COMMENTComment: [facility] DEPARTMENT OF Bacteriuria screen negative. PATHOLOGY AND GENOMIC MEDICINE Performing Organization Address [facility] Phone Number [facility] [address] [place] [address] PATHOLOGY AND GENOMIC MEDICINE * CT Head Wo Contrast (02/21/2018 10:11 PM CDT) Narrative Performed At EXAMINATION:CT HEAD WO CONTRAST [facility] CLINICAL HISTORY:numbness COMPARISON:Head CT on 05/14/2017. TECHNIQUE: Noncontrast head CT performed using radiation dose reduction techniques.Technical factors are evaluated and adjusted to ensure appropriate moderation of exposure.Automated dose management technology is applied to adjust radiation exposure while achieving a diagnostic quality image. FINDINGS: The brain appears stable with no evidence of hemorrhage, mass lesion, or midline shift. Again noted is prominent Virchow-Garrick perivascular space in the right lentiform nucleus. Vazquez-white matter differentiation is preserved with no evidence of acute territorial infarction. Ventricles, sulci, and cisterns are stable in size and configuration with no hydrocephalus or extra-axial fluid collection. Visualized paranasal sinuses and mastoid air cells are clear. Bilateral intraocular lens implants are noted. Bones and soft tissues are unremarkable. IMPRESSION: Stable head CT with no evidence of acute territorial infarction, hemorrhage, or mass lesion. Findings were discussed with Dr. Tejeda on 02/21/2018 10:13 PM, and he verbalized understanding of the report. [facility]-[id number] Procedure Note Interface, Radiology Results Incoming - 02/21/2018 10:18 PM CDT EXAMINATION: CT HEAD WO CONTRAST CLINICAL HISTORY: numbness COMPARISON: Head CT on 05/14/2017. TECHNIQUE: Noncontrast head CT performed using radiation dose reduction techniques. Technical factors are evaluated and adjusted to ensure appropriate moderation of exposure. Automated dose management technology is applied to adjust radiation exposure while achieving a diagnostic quality image. FINDINGS: The brain appears stable with no evidence of hemorrhage, mass lesion, or midline shift. Again noted is prominent Virchow-Garrick perivascular space in the right lentiform nucleus. Vazquez-white matter differentiation is preserved with no evidence of acute territorial infarction. Ventricles, sulci, and cisterns are stable in size and configuration with no hydrocephalus or extra-axial fluid collection. Visualized paranasal sinuses and mastoid air cells are clear. Bilateral intraocular lens implants are noted. Bones and soft tissues are unremarkable. IMPRESSION: Stable head CT with no evidence of acute territorial infarction, hemorrhage, or mass lesion. Findings were discussed with Dr. Tejeda on 02/21/2018 10:13 PM, and he verbalized understanding of the report. [facility]-[id number] Performing Organization Address City/State/Zipcode Phone Number [facility] [address] [place] [address] * Troponin (02/21/2018 10:09 PM CDT) Troponin <0.30 0.00 - 0.30 ng/mL [facility] DEPARTMENT OF Comment: PATHOLOGY AND 0.30 - 1.49 GENOMIC MEDICINE ng/mlMay indicate increased risk of acute coronary syndrome. >=1.5 ng/ml Consistent with acute myocardial infarction. The diagnostic value of a single normal or non-diagnostic result is questionable.Serial samples at 2-6 hour intervals are required to rule out acute myocardial injury. Specimen Plasma specimen Performing Organization Address [facility] Phone Number [facility] [place] [place] [address] PATHOLOGY AND GENOMIC MEDICINE * Partial thromboplastin time, activated (02/21/2018 10:09 PM CDT) PTT 35.1 23.0 - 36.0 sec [facility] DEPARTMENT OF Comment: PATHOLOGY AND PTT therapeutic range for [facility] unfractionated heparin is 61.0-112.0 seconds which corresponds to Anti-Xa 0.3-0.7 U/ml. Specimen Blood Performing Organization Address [facility]/[place] [address] PATHOLOGY AND GENOMIC MEDICINE * Prothrombin time with INR (02/21/2018 10:09 PM CDT) Prothrombin time 13.8 12.0 - 15.0 sec [facility] DEPARTMENT OF PATHOLOGY AND GENOMIC MEDICINE INR 1.0 [facility] DEPARTMENT OF Comment: PATHOLOGY AND The International Normalized [facility] Ratio (INR) is a therapeutic monitoring tool for patients who are stable on oral anticoagulant therapy. An INR of 2.0-3.0 is suggested for deep vein thrombosis/pulmonary embolism. Specimen Blood Performing Organization Address [facility] [place] [address] PATHOLOGY AND GENOMIC MEDICINE * B natriuretic peptide (02/21/2018 10:09 PM CDT) Only the most recent of 2 results within the time period is included. BNP 186 (H) 0 - 100 pg/mL [facility] DEPARTMENT OF PATHOLOGY AND GENOMIC MEDICINE Specimen Blood Performing Organization Address [facility]/Zipcode Phone Number [facility] [place] [place] [address] PATHOLOGY AND GENOMIC MEDICINE * Comprehensive metabolic panel (02/21/2018 10:09 PM CDT) Sodium 135 135 - 148 mEq/L [facility] DEPARTMENT OF PATHOLOGY AND GENOMIC MEDICINE Potassium SEE COMMENT 3.5 - 5.0 mEq/L [facility] DEPARTMENT OF Comment: PATHOLOGY AND Footnote--------- GENOMIC MEDICINE Unable to perform testing, specimen is HEMOLYZED.Recollect requested for K AST (tests). [place] ____ (tech ID) [email or web address] ____ (date/time).Credit issued. Chloride 97 (L) 98 - 112 mEq/L [facility] DEPARTMENT OF PATHOLOGY AND GENOMIC MEDICINE CO2 21 (L) 24 - 31 mEq/L [facility] DEPARTMENT OF PATHOLOGY AND GENOMIC MEDICINE Anion gap 17@ANIO (H) 7 - 15 mEq/L [facility] DEPARTMENT OF PATHOLOGY AND GENOMIC MEDICINE BUN 18 8 - 23 mg/dL [facility] DEPARTMENT OF PATHOLOGY AND GENOMIC MEDICINE Creatinine 0.9 0.7 - 1.2 mg/dL [facility] DEPARTMENT OF PATHOLOGY AND GENOMIC MEDICINE Glucose 155 (H) 65 - 99 mg/dL [facility] [facility] DEPARTMENT OF PATHOLOGY AND GENOMIC MEDICINE Calcium 9.4 8.8 - 10.2 mg/dL [facility] DEPARTMENT OF PATHOLOGY AND GENOMIC MEDICINE Protein 7.3 6.3 - 8.3 g/dL [facility] DEPARTMENT OF Comment: PATHOLOGY AND GENOMIC MEDICINE 4.6-7.0 g/dL 1 week 4.4-7.6 g/dL 7 months-1year 5.1-7.3 g/dL 1-2 years5.6-7 .5 g/dL >3 years6.0-8 .0 g/dL 18-150 6.3-8.3 g/dL Albumin 3.7 3.5 - 5.0 g/dL [facility] DEPARTMENT OF PATHOLOGY AND GENOMIC MEDICINE A/G ratio 1.0 0.7 - 3.8 [facility] DEPARTMENT OF PATHOLOGY AND GENOMIC MEDICINE Alkaline phosphatase 50 40 - 129 U/L [facility] DEPARTMENT OF PATHOLOGY AND GENOMIC MEDICINE AST SEE COMMENTComment: 10 - 50 U/L [facility] DEPARTMENT OF Footnote--------- PATHOLOGY AND GENOMIC MEDICINE ALT 30 5 - 50 U/L [facility] DEPARTMENT OF PATHOLOGY AND GENOMIC MEDICINE Total bilirubin 0.5 0.0 - 1.2 mg/dL [facility] DEPARTMENT OF PATHOLOGY AND GENOMIC MEDICINE Specimen Plasma specimen Performing Organization Address City/State/Zipcode Phone Number [facility] DEPARTMENT OF [address] [place] [address] PATHOLOGY AND GENOMIC MEDICINE * CBC hemogram (12/17/2017 10:50 AM CDT) WBC 8.95 4.50 - 11.00 k/uL [facility] DEPARTMENT OF PATHOLOGY AND GENOMIC MEDICINE RBC 5.15 4.40 - 6.00 m/uL [facility] DEPARTMENT OF PATHOLOGY AND GENOMIC MEDICINE HGB 16.5 14.0 - 18.0 g/dL [facility] DEPARTMENT OF PATHOLOGY AND GENOMIC MEDICINE HCT 47.0 41.0 - 51.0 % [facility] DEPARTMENT OF PATHOLOGY AND GENOMIC MEDICINE MCV 91.3 82.0 - 100.0 fL [facility] DEPARTMENT OF PATHOLOGY AND GENOMIC MEDICINE MCH 32.0 27.0 - 34.0 pg [facility] DEPARTMENT OF PATHOLOGY AND GENOMIC MEDICINE MCHC 35.1 31.0 - 37.0 g/dL [facility] DEPARTMENT OF PATHOLOGY AND GENOMIC MEDICINE RDW - SD 41.9 37.0 - 55.0 fL [facility] DEPARTMENT OF PATHOLOGY AND GENOMIC MEDICINE MPV 10.0 8.8 - 13.2 fL [facility] DEPARTMENT OF PATHOLOGY AND GENOMIC MEDICINE Platelet count 196 150 - 400 k/uL [facility] DEPARTMENT OF PATHOLOGY AND GENOMIC MEDICINE Nucleated RBC 0.00 /100 WBC [facility] DEPARTMENT OF PATHOLOGY AND GENOMIC MEDICINE Specimen Blood Performing Organization Address City/[facility] Phone Number [facility] DEPARTMENT OF [address] [place] [id number] PATHOLOGY AND GENOMIC MEDICINE * XR Ankle 3 Vw Bilateral (12/14/2017 1:54 PM CDT) Narrative Performed At EXAMINATION:XR ANKLE 3 VW BILATERAL [facility] CLINICAL HISTORY:M79.609 Pain in unspecified limb, m79.609 COMPARISON:None. IMPRESSION: 1.There is mild soft tissue swelling about the bilateral ankles at the lateral aspects. Superior and inferior patellar osteophytes are seen. No fracture or dislocation is identified. No erosions are seen. [facility]-[id number] Procedure Note Hm Interface, Radiology Results Incoming - 12/14/2017 2:36 PM CDT EXAMINATION: XR ANKLE 3 VW BILATERAL CLINICAL HISTORY: M79.609 Pain in unspecified limb, m79.609 COMPARISON: None. IMPRESSION: 1. There is mild soft tissue swelling about the bilateral ankles at the lateral aspects. Superior and inferior patellar osteophytes are seen. No fracture or dislocation is identified. No erosions are seen. [facility]-[id number] Performing Organization Address [facility] Phone Number [facility] [address] [place] [address] * XR Foot 3 Vw Bilateral (12/14/2017 1:54 PM CDT) Narrative Performed At EXAMINATION:XR FOOT 3 VW BILATERAL [facility] CLINICAL HISTORY:M79.609 Pain in unspecified limb, m79.609 COMPARISON:None. IMPRESSION: 1.Bilateral foot films demonstrate marked narrowing of the first distal interphalangeal joint with subluxation of the distal phalanx laterally and robust osteophytosis reduction. A few areas of subcutaneous chondral cystic change and sclerosis are noted. Findings are compatible with advanced arthritic change of this joint. 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 Superior and inferior calcaneal spurs are present bilaterally. No fracture or dislocation is seen. [facility]-[id number] Procedure Note Hm Interface, Radiology Results - 12/14/2017 2:36 PM CDT EXAMINATION: XR FOOT 3 VW BILATERAL CLINICAL HISTORY: M79.609 Pain in unspecified limb, m79.609 COMPARISON: None. IMPRESSION: 1. Bilateral foot films demonstrate marked narrowing of the first distal interphalangeal joint with subluxation of the distal phalanx laterally and robust osteophytosis reduction. A few areas of subcutaneous chondral cystic change and sclerosis are noted. Findings are compatible with advanced arthritic change of this joint. 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 Superior and inferior calcaneal spurs are present bilaterally. No fracture or dislocation is seen. [facility]-[id number] Performing Organization Address City/State/Zipcode Phone Number [facility] [address] [place] [address] after 09/16/2017 Insurance Payer Benefit Subscriber ID Type Phone Address Plan / Group MEDICARE MEDICARE xxxxxxxxxx Medicare [place], [place] PART A AND B COMMERCIAL MISC MISC xxxxxxxxxxxx Commercial COMMERCIAL Advance Directives Patient has advance care planning documents on file. For more information, tejinder german contact: Omid Smith [address] [place] [address]
[2018-09-17 13:50] LABS: BASOPHILS # (AUTO) 0.1 (0.0-0.1); BASOPHILS % 0.4 % (0.0-1.0); EOSINOPHILS # (AUTO) 0.2 (0.0-0.4); EOSINOPHILS % 1.7 % (0.0-6.0); HEMATOCRIT 46.7 % (38.2-49.6); HEMOGLOBIN 16.5 g/dL (14.0-18.0); LYMPHOCYTES # (AUTO) 4.2 (1.0-3.2); LYMPHOCYTES % 35.5 % (18.0-39.1); MEAN CORPUSCULAR HEMOGLOBIN 32.4 pg (28-32); MEAN CORPUSCULAR HGB CONC 35.3 g/dL (31-35); MEAN CORPUSCULAR VOLUME 91.7 fL (81-99); MONOCYTES # (AUTO) 0.9 (0.2-0.8); MONOCYTES % 7.2 % (4.4-11.3); NEUTROPHILS # (AUTO) 6.5 (2.1-6.9); NEUTROPHILS % 54.8 % (38.7-80.0); PLATELET COUNT 197 x10e3/uL (140-360); RED BLOOD COUNT 5.09 x10e6/uL (4.3-5.7); RED CELL DISTRIBUTION WIDTH 13.5 % (11.7-14.4)
[2018-09-17 14:11] LABS: ALANINE AMINOTRANSFERASE 16 IU/L (0-55); ALBUMIN 3.7 g/dL (3.5-5.0); ALBUMIN/GLOBULIN RATIO 0.9 (0.8-2.0); ALKALINE PHOSPHATASE 50 IU/L (40-150); ANION GAP 14.2 mmol/L (8-16); BLOOD UREA NITROGEN 23 mg/dL (7-26); BUN/CREATININE RATIO 25 (6-25); CALCIUM 9.7 mg/dL (8.4-10.2); CARBON DIOXIDE 23 mmol/L (22-29); CHLORIDE 103 mmol/L (98-107); CREATINE KINASE 517 IU/L (30-200); CREATININE, SERUM 0.93 mg/dL (0.72-1.25); EST GLOMERULAR FILTRATION RATE > 60 ML/MIN (60-); GLUCOSE 96 mg/dL (74-118); POTASSIUM 4.2 mmol/L (3.5-5.1); SODIUM 136 mmol/L (136-145)
[2018-09-17 14:12] LABS: INR 0.88; PROTHROMBIN TIME 12.8 seconds (11.9-14.5)
[2018-09-17 14:13] LABS: PARTIAL THROMBOPLASTIN TIME 32.6 seconds (23.8-35.5)
[2018-09-17 14:31] LABS: THYROID STIMULATING HORMONE 1.721 uIU/mL (0.350-4.940)
--- NOTE | 2018-09-17 14:47 | Diagnostic Imaging Report ---
EXAMINATION: CHEST 2 VIEWS INDICATION: Atrial fibrillation, shortness of breath. COMPARISON: None FINDINGS: TUBES and LINES: None. LUNGS: Lungs are moderately inflated. There are patchy opacities at the left lung base. Somewhat nodular opacity projects over the left mid lung. No evidence of lobar consolidation or pulmonary edema. PLEURA: No pleural effusion or pneumothorax. HEART AND MEDIASTINUM: The cardiomediastinal silhouette is unremarkable. BONES AND SOFT TISSUES: No acute osseous lesion. Soft tissues are unremarkable. UPPER ABDOMEN: No free air under the diaphragm. IMPRESSION: No evidence of pulmonary edema. Mild patchy opacities at the left lung base. Nodular opacity overlying the left mid lung could represent atelectasis or early pneumonia, however follow-up chest radiograph is suggested in 6-8 weeks to assess for resolution and exclude underlying pulmonary nodule. Signed by: Dr. Simba Hernandez MD on 09/17/2018 2:44 PM
[2018-09-17 18:26] LABS: CLARITY,URINE CLEAR (CLEAR); COLOR,URINE YELLOW (YELLOW); LEUKOCYTE ESTERASE ,URINE NEGATIVE (NEGATIVE); NITRITE,URINE NEGATIVE (NEGATIVE); PROTEIN,URINE DIPSTICK NEGATIVE (NEGATIVE)
[2018-09-17 18:27] LABS: BILIRUBIN,URINE NEGATIVE (NEGATIVE); KETONES,URINE NEGATIVE (NEGATIVE); URINE UROBILINOGEN 0.2 mg/dL (0.2 - 1)
[2018-09-17 18:41] LABS: EPITHELIAL CELLS,URINE RARE /LPF
[2018-09-17] MEDS ORDERED: LOPRESSOR25 MG PO (19:14)
[2018-09-17] MEDS ORDERED: LEVOTHYROXINE25 MCG PO (19:14)
[2018-09-17] MEDS ORDERED: NOVOLOG MI100 UNIT/1 SQ ×2 (19:14)
[2018-09-17] MEDS ORDERED: MAGNESIUM OXID400 MG PO (19:14)
[2018-09-17] MEDS ORDERED: CLOPIDOGREL75 MG PO (19:14)
--- NOTE | 2018-09-17 19:30 | NUR ---
DR ESQUEDA AT BEDSIDE ASSESSING PT
[2018-09-17] MEDS ORDERED: ACETAMINOPHEN 325 MG TAB PO PRN (19:45)
[2018-09-17] MEDS ORDERED: DEXTROSE 50% SYRINGE 50 ML IV PRN (19:45)
[2018-09-17] MEDS ORDERED: AZITHROMYCIN 500MG/SOD CHL 0.9% 250ML BAG IV SCH (19:45)
--- OUTSIDE RECORDS SUMMARY | 2018-09-17 19:57 | XMS REPORT | Clinical Summary ---
Author Author [facility] Organization [place] [facility] Address Unknown Phone Unavailable Care Team Providers Care Vulnerability Assessment Analyst Name Role Phone Asked, No Pcp PCP [...] MMODE SPECTRAL 10:52 AM CDT COLOR DOPPLER (72920) MRI BRAIN WO CONTRAST STAT 02/22/2018 10:13 [...] glucose 142 (H) 65 - 99 mg/dL [facility] Comment: PATHOLOGY AND [facility] Notified RN GENOMIC MEDICINE Meter ID: [id number] Charge Rn: Jin Garcia Performing Organization Address City/[facility]/Zipcode Phone Number [address] [address] PATHOLOGY AND GENOMIC MEDICINE * Estimated GFR (02/23/2018 4:22 AM CDT) Only the most recent of 4 results within the time period is included. GFR Non Af Amer 81 mL/min/1.73 m2 [facility] PATHOLOGY AND GENOMIC MEDICINE GFR Af Amer >90 mL/min/1.73 m2 [facility] Comment: PATHOLOGY AND Chronic kidney [...] specimen Performing Organization Address City/State/Zipcode Phone Number [address] [address] PATHOLOGY AND [facility] * CBC with platelet and differential (02/23/2018 4:22 AM CDT) Only the most recent of 3 results within the time period is included. WBC 9.31 4.50 - 11.00 k/uL [facility] OF PATHOLOGY AND GENOMIC MEDICINE RBC 4.84 4.40 - 6.00 m/uL [facility] PATHOLOGY AND GENOMIC MEDICINE HGB 15.5 14.0 - 18.0 g/dL [facility] PATHOLOGY AND GENOMIC MEDICINE HCT 45.3 41.0 - 51.0 % [facility] PATHOLOGY AND GENOMIC MEDICINE MCV 93.6 82.0 - 100.0 fL [facility] PATHOLOGY AND GENOMIC MEDICINE MCH 32.0 27.0 - 34.0 pg [facility] OF PATHOLOGY AND GENOMIC MEDICINE MCHC 34.2 31.0 - 37.0 g/dL [facility] PATHOLOGY AND GENOMIC MEDICINE RDW - SD 44.5 37.0 - 55.0 fL [facility] PATHOLOGY AND GENOMIC MEDICINE MPV 9.6 8.8 - 13.2 fL [facility] PATHOLOGY AND GENOMIC MEDICINE Platelet count 186 150 - 400 k/uL [facility] OF PATHOLOGY AND GENOMIC MEDICINE Nucleated RBC 0.00 /100 WBC [facility] OF PATHOLOGY AND GENOMIC MEDICINE Neutrophils 54.4 39.0 - 69.0 % [facility] PATHOLOGY AND GENOMIC MEDICINE Lymphocytes 33.8 25.0 - 45.0 % [facility] PATHOLOGY AND GENOMIC MEDICINE Monocytes 8.9 0.0 - 10.0 % [facility] PATHOLOGY AND GENOMIC MEDICINE Eosinophils 1.9 0.0 - 5.0 % [facility] PATHOLOGY AND GENOMIC MEDICINE Basophils 0.6 0.0 - 1.0 % [facility] PATHOLOGY AND GENOMIC MEDICINE Immature granulocytes 0.4Comment: "Immature 0.0 - 1.0 % [facility] granulocytes" (promyelocytes, PATHOLOGY AND myelocytes, metamyelocytes) GENOMIC MEDICINE Specimen Blood Performing Organization Address City/[facility]/[place] [address] PATHOLOGY AND GENOMIC [facility] * Magnesium level (02/23/2018 4:22 AM CDT) Only the most recent of 2 results within the time period is included. Magnesium 2.3 1.6 - 2.4 mg/dL [facility] OF PATHOLOGY AND GENOMIC MEDICINE Specimen Plasma specimen Performing Organization Address City/[facility] [place] [place] [address] PATHOLOGY AND [facility] * Basic metabolic panel (02/23/2018 4:22 AM CDT) Only the most recent of 3 results within the time period is included. Sodium 138 135 - 148 mEq/L [facility] OF PATHOLOGY AND GENOMIC MEDICINE Potassium 3.8 3.5 - 5.0 mEq/L [facility] OF PATHOLOGY AND GENOMIC MEDICINE Chloride 101 98 - 112 mEq/L [facility] OF PATHOLOGY AND GENOMIC MEDICINE CO2 23 (L) 24 - 31 mEq/L [facility] OF PATHOLOGY AND GENOMIC MEDICINE Anion gap 14@ANIO 7 - 15 mEq/L [facility] OF PATHOLOGY AND GENOMIC MEDICINE BUN 21 8 - 23 mg/dL [facility] PATHOLOGY AND GENOMIC MEDICINE Creatinine 0.9 0.7 - 1.2 mg/dL [facility] PATHOLOGY AND GENOMIC MEDICINE Glucose 131 (H) 65 - 99 mg/dL [facility] OF PATHOLOGY AND GENOMIC MEDICINE Calcium 9.2 8.8 - 10.2 mg/dL [facility] OF PATHOLOGY AND GENOMIC MEDICINE Specimen Plasma specimen Performing Organization Address City/State/Zipcode Phone Number [facility] [address] [phone] PATHOLOGY AND GENOMIC MEDICINE * Echocardiogram complete w contrast and 3D if needed (02/22/2018 10:52 AM CDT) Narrative Performed At [facility] Echocardiography Report [address] [facility], [facility] [address], [place] [address] Pat.Name:TITI MAY Pat.ID:[id number] St.Date: 02/22/2018 Refer.MD:NAZIA MOREL MD Exam Time: 11:25:00 AM Study Type:Routine Echo Height:70.47in Weight:242lb BSA: 2.28 m2 DOBAge:1935,82Y Sex: MALEBP:125/63 HR:63 bpmSonogrphr: [place] Pat. Stat.:Inpatient Room:[facility] Study Status:Final Echo Event ID:[id number] Order ID:[id number] Reason for Study:Chest Pain Procedures:2D Echo, Colorflow [...] PA systolic pressure. MEASUREMENTS: 2D Parasternal [place] LVIDd5.6 cmIndex2.5 cm/m Ao Rtd 3.3 cm Index1.5 cm/m LVIDs4.8 cm LV Qafn364.9 g(122-174) LV%fs 15.3 % LVM Htcvj486.3 g/m2 IVSd 1.2 cmRWT0.5 LVPWd1.3 cm LA Sng Plane LA Area 23.6 cm2(8.8-23.4) LA Vol78.4 ml Index34.4 ml/m LA LngAx 5.9 cm Signed 02/22/2018 12:00 PM Clint Hand M.D. Procedure Note Interface, Radiology Results In - 02/22/2018 12:01 PM CDT Echocardiography Report [address] [place] [address] Pat.Name: TITI MAY Pat.ID: [id number] .Date: 02/22/2018 Refer.MD: NAZIA MOREL MD Exam Time: 11:25:00 AM Study Type:Routine Echo Height: 70.47in Weight: 242lb BSA: 2.28 m2 Age: 2 1935,82Y Sex: MALE BP: 125/63 HR: 63 bpm Sonogrphr: [place] Pat. Stat.:Inpatient Room: [facility] Study Status:Final Echo Event ID:[id number] Order ID: [id number] Reason for Study:Chest Pain Procedures:2D Echo, Colorflow [...] PA systolic pressure. MEASUREMENTS: 2D Parasternal [place] LVIDd 5.6 cm Index 2.5 cm/m Ao [...] PM Clint Hand M.D. Performing Organization Address [facility]/Zipcode Phone Number [facility] [address] [place] [address] * MRI Brain Wo Contrast (02/22/2018 10:13 [...] recent infarct or other acute intracranial abnormality. [id number] Procedure Note Interface, Radiology Results Incoming - [...] recent infarct or other acute intracranial abnormality. [id number] Performing Organization Address [facility] Phone Number [facility] [address] [place] [address] * Syphilis treponemal IgG (02/22/2018 8:53 AM CDT) Only the most recent of 2 results within the time period is included. Syphilis treponemal IgG Non-reactiveComment: Non-reactive [facility] Non-reactive: No serological PATHOLOGY AND evidence of Syphilis infection GENOMIC MEDICINE Specimen Serum Performing Organization Address City/[facility] [place] [address] PATHOLOGY AND [facility] * Folate level (02/22/2018 8:52 AM CDT) Only the most recent of 2 results within the time period is included. Folate 16.0 4.8 - 24.2 ng/mL [facility] OF PATHOLOGY AND GENOMIC MEDICINE Specimen Serum Performing Organization Address City/[facility] Phone Number [address] [address] PATHOLOGY AND [facility] * Vitamin B12 level (02/22/2018 8:52 AM CDT) Only the most recent of 2 results within the time period is included. Vitamin B12 294 211 - 946 pg/mL [facility] OF Comment: PATHOLOGY AND Significant overlap exists GENOMIC MEDICINE between normal and deficiency states. However, most patients with deficiencies will have Serum B12 <200 pg/mL. Specimen Serum Performing Organization Address [facility] Phone Number [address] [address] PATHOLOGY AND [facility] MED[facility] * T3, free (02/22/2018 4:00 AM CDT) T3, free 2.7 2.4 - 4.2 pg/mL [facility] Comment: REFERENCE INTERVAL: Triiodothyronine, Free (Free T3) Access complete set of age- and/or gender-specific reference intervals for this test in the [facility] Test Directory ([employer]). Performed by [facility], [address] [place] [address] [email or web address], Ryder Chow MD - Lab. Director Specimen Serum Performing Organization Address [facility] Number [facility] [address] [address] * AST (SGOT) (02/22/2018 4:00 AM CDT) AST 20 10 - 50 U/L [facility] DEPARTMENT OF PATHOLOGY AND GENOMIC MEDICINE Specimen Plasma specimen Performing Organization Address [facility] Phone Number [address] [address] PATHOLOGY AND [facility] * Thyroid stimulating hormone (02/22/2018 4:00 AM CDT) Only the most recent of 2 results within the time period is included. TSH 2.55 0.27 - 4.20 uIU/mL [facility] OF PATHOLOGY AND GENOMIC MEDICINE Specimen Plasma specimen Performing Organization Address City/[facility] [place] [address] PATHOLOGY AND [facility] * T4, free (02/22/2018 4:00 AM CDT) T4, free 1.1 0.9 - 1.7 ng/dL [facility] OF PATHOLOGY AND [facility] Specimen Plasma specimen Performing Organization Address [facility] [place] [place] [address] PATHOLOGY AND [facility] * Hemoglobin A1c (02/22/2018 4:00 AM CDT) Only the most recent of 3 results within the time period is included. Hemoglobin A1C 8.9 (H) 4.0 - 5.6 % [facility] OF Comment: PATHOLOGY AND HbA1c cutoffs for diagnosing GENOMIC MEDICINE diabetes: 4.0% - 5.6%=normal 5.7% - 6.4%=increased risk for diabetes (prediabetes) >=6.5%=diabetes Goals for glycemic control (ADA 2016) < 7.0%Target for non adults with diabetes. More or less stringent targets may be appropriate for individual patients. <7.5% Target for Children and adolescents with type 1 diabetes. Specimen Blood Performing Organization Address [facility] Phone Number [facility] [place] [address] PATHOLOGY AND [facility] * Lipid panel (02/22/2018 4:00 AM CDT) Only the most recent of 2 results within the time period is included. Cholesterol 204 (H) <200 mg/dL [facility] OF PATHOLOGY AND GENOMIC MEDICINE Triglycerides 240 (H) <150 mg/dL [facility] OF PATHOLOGY AND GENOMIC MEDICINE HDL cholesterol 34 (L) >40 mg/dL [facility] OF PATHOLOGY AND GENOMIC MEDICINE LDL cholesterol 140 (H)Comment: Result <100 mg/dL [facility] OF obtained by direct LDL PATHOLOGY AND measurement GENOMIC MEDICINE Lipid panel SeeBelow [facility] OF interpretation Comment: PATHOLOGY AND Total [...] mg/dL) Specimen Plasma specimen Performing Organization Address [facility] Phone Number [facility] OF [address] [place] [address] PATHOLOGY AND GENOMIC MEDICINE * XR Chest 1 Vw Portable (02/21/2018 11:38 PM CDT) Narrative Performed At Examination: XR CHEST 1 VW PORTABLE [facility] Clinical history: Chest Pain Comparison: August 11, 2017 Impression: 1. The cardiac silhouette is mildly enlarged, though vasculature is within normal limits. 2. There is no confluent infiltrate or effusion. 3. There is no acute osseous pathology. [facility]-[id number] Procedure Note Interface, Radiology Results Incoming - 02/21/2018 11:44 PM CDT Examination: XR CHEST 1 VW PORTABLE Clinical history: Chest Pain Comparison: August 11, 2017 Impression: 1. The cardiac silhouette is mildly enlarged, though vasculature is within normal limits. 2. There is no confluent infiltrate or effusion. 3. There is no acute osseous pathology. [id number] Performing Organization Address [facility] Phone Number [facility] [address] [place] [address] * Homocystine, plasma (02/21/2018 10:42 PM CDT) Homocysteine 12.4 0.0 - 15.0 umol/L [facility] Comment: PATHOLOGY AND The risk for coronary vascular GENOMIC MEDICINE disease increases progressively with homocysteine concentration.A 3.4 times greater risk is associated with a homocysteine concentration of greater than 15.8 umol/L as compared to a concentration below 14.1 umol/L. Specimen Plasma specimen Performing Organization Address City/[facility]/[place] [address] PATHOLOGY AND GENOMIC MEDICINE * Sedimentation rate (02/21/2018 10:42 PM CDT) Sedimentation rate 7 0 - 10 mm/hr [facility] PATHOLOGY AND GENOMIC MEDICINE Specimen Blood Performing Organization Address [facility] [place] [address] PATHOLOGY AND GENOMIC MEDICINE * C-reactive protein (02/21/2018 10:42 PM CDT) CRP <0.30 0.00 - 0.50 mg/dL [facility] PATHOLOGY AND GENOMIC MEDICINE Specimen Plasma specimen Performing Organization Address [facility] Phone Number [facility] [place] [place] [address] PATHOLOGY AND [facility] * CTA Head W Wo Contrast (02/21/2018 10:39 PM CDT) Narrative Performed At EXAMINATION:CT ANGIOGRAM HEAD W WO CONTRAST [facility] CLINICAL HISTORY:dizziness COMPARISON:Head CT on 02/21/2018. TECHNIQUE: Head CTA with multiplanar MIP and volumetric rendering after bolus intravenous iodinated contrast administration performed using radiation dose reduction techniques.Technical factors are evaluated and adjusted to ensure appropriate moderation of exposure.Automated dose management technology is applied to adjust radiation exposure while achieving a diagnostic quality image. FINDINGS: The anterior circulation is dominant with bilateral -type etl architect with origins from prominent posterior communicating arteries. [...] evidence of cerebral aneurysm in the proximal habematolel of [place]. There is no evidence of perfusion-weighted defect on CTA source images. IMPRESSION: 1. Normal variant habematolel of [place] anatomy as described. 2. No significant stenosis or occlusion in the proximal habematolel of [place]. 3. No evidence of perfusion-weighted defect on CTA source images. [facility]-[id number] Procedure Note Interface, Radiology Results Incoming - [...] anterior circulation is dominant with bilateral -type etl architect with origins from prominent posterior communicating arteries. [...] evidence of cerebral aneurysm in the proximal habematolel of [place]. There is no evidence of perfusion-weighted defect on CTA source images. IMPRESSION: 1. Normal variant habematolel of [place] anatomy as described. 2. No significant stenosis or occlusion in the proximal habematolel of [place]. 3. No evidence of perfusion-weighted defect on CTA source images. [facility]-[id number] Performing Organization Address City/State/Zipcode Phone Number [facility] [address] [place] [address] * CTA Neck W Wo Contrast (02/21/2018 10:38 PM CDT) Narrative Performed At EXAMINATION:CT ANGIOGRAM NECK W WO CONTR[facility]:dizziness COMPARISON:Concurrent head CTA [...] stenosis. 2. No significant vertebral artery stenosis. [facility]-[id number] Procedure Note [facility], Radiology Results Incoming - 02/21/2018 10:56 PM [...] stenosis. 2. No significant vertebral artery stenosis. [facility]-[id number] Performing Organization Address City/State/Zipcode Phone Number [facility] [address] [place] [address] * Urinalysis screen and microscopy, with reflex to culture (02/21/2018 10:38 PM CDT) Specimen site Clean catch [facility] OF PATHOLOGY AND GENOMIC MEDICINE Color, UA Straw [facility] OF PATHOLOGY AND GENOMIC MEDICINE Appearance, UA Clear [facility] OF PATHOLOGY AND GENOMIC MEDICINE Specific gravity, UA 1.019 1.001 - 1.035 [facility] OF PATHOLOGY AND GENOMIC MEDICINE pH, UA 6.0 5.0 - 8.5 [facility] OF PATHOLOGY AND GENOMIC MEDICINE Protein, UA Negative Negative [facility] OF PATHOLOGY AND GENOMIC MEDICINE Glucose, UA Negative Negative [facility] OF PATHOLOGY AND GENOMIC MEDICINE Ketones, UA Negative Negative [facility] OF PATHOLOGY AND GENOMIC MEDICINE Bilirubin, UA Negative Negative [facility] OF PATHOLOGY AND GENOMIC MEDICINE Blood, UA Negative Negative [facility] OF PATHOLOGY AND GENOMIC MEDICINE Nitrite, UA Negative Negative [facility] OF PATHOLOGY AND GENOMIC MEDICINE Urobilinogen, UA <2.0 <2.0 [facility] OF PATHOLOGY AND GENOMIC MEDICINE Leukocyte esterase, UA Negative Negative [facility] OF PATHOLOGY AND GENOMIC MEDICINE WBC, UA 1 0 - 1 /HPF [facility] OF PATHOLOGY AND GENOMIC MEDICINE RBC, UA <1 0 - 5 /HPF [facility] OF PATHOLOGY AND GENOMIC MEDICINE Bacteria, UA None seen None seen [facility] OF PATHOLOGY AND GENOMIC MEDICINE Yeast, UA None seen [facility] OF PATHOLOGY AND GENOMIC MEDICINE Yeast with pseudohyphae, None seen [facility] UA PATHOLOGY AND GENOMIC MEDICINE Specimen Urine Performing Organization Address City/State/[facility] Phone Number [facility] OF [address] [place] [address] PATHOLOGY AND GENOMIC MEDICINE * Urine drugs of abuse screen (02/21/2018 10:38 PM CDT) Amphetamine screen, urine Negative [facility] OF PATHOLOGY AND GENOMIC MEDICINE Barbiturate screen, urine Negative [facility] PATHOLOGY AND GENOMIC MEDICINE Benzodiazepine screen, Negative [facility] urine PATHOLOGY AND GENOMIC MEDICINE Cannabinoid screen, urine Negative [facility] OF PATHOLOGY AND GENOMIC MEDICINE Cocaine screen, urine Negative [facility] OF PATHOLOGY AND GENOMIC MEDICINE Methadone metabolite Negative [facility] OF (EDDP), urine PATHOLOGY AND GENOMIC MEDICINE Opiates screen, urine Negative [facility] OF PATHOLOGY AND GENOMIC MEDICINE Oxycodone screen, urine Negative [facility] OF PATHOLOGY AND GENOMIC MEDICINE Phencyclidine screen, Negative [facility] urine PATHOLOGY AND GENOMIC MEDICINE Tricyclic screen, urine Negative [facility] Comment: PATHOLOGY AND Drug screen [...] purposes only. Specimen Urine Performing Organization Address [facility] Phone Number [facility] OF [address] [place] [address] PATHOLOGY AND GENOMIC MEDICINE * ECG 12 lead (02/21/2018 10:37 PM CDT) Ventricular rate 99 [facility] MUSE Atrial rate 99 [facility] QRSD interval 158 [facility] QT interval 380 [facility] QTC interval 487 [facility] P axis 1 16 [facility] QRS axis 1 -43 [facility] T wave axis 119 [facility] EKG impression Sinus rhythm with 1st degree [facility] AV block with fusion complexes and premature atrial complexes-Left axis deviation-Left bundle branch block-Abnormal ECG-In automated comparison with ECG of 12-MAY-2017 10:57,-fusion complexes are now present-premature ventricular complexes are no longer present-premature atrial complexes are now present-AL interval has decreased- Performing Organization Address [facility] Phone Number [address] [address] * Urine culture (02/21/2018 10:36 PM CDT) Urine culture SEE COMMENTComment: [facility] Bacteriuria screen negative. PATHOLOGY AND GENOMIC MEDICINE Performing Organization Address [facility] Phone Number [facility] OF [address] [place] [address] PATHOLOGY AND GENOMIC MEDICINE * CT Head [...] and he verbalized understanding of the report. [facility]-[id number] Procedure Note Interface, Radiology Results Incoming - [...] and he verbalized understanding of the report. [facility]-[id number] Performing Organization Address City/State/Zipcode Phone Number [facility] [address] [place] [address] * Troponin (02/21/2018 10:09 PM CDT) Troponin <0.30 0.00 - 0.30 ng/mL [facility] OF Comment: PATHOLOGY AND 0.30 - 1.49 GENOMIC MEDICINE ng/mlMay indicate increased risk of acute coronary syndrome. >=1.5 ng/ml Consistent with acute myocardial infarction. The diagnostic value of a single normal or non-diagnostic result is questionable.Serial samples at 2-6 hour intervals are required to rule out acute myocardial injury. Specimen Plasma specimen Performing Organization Address [facility] Phone Number [facility] [place] [address] PATHOLOGY AND GENOMIC MEDICINE * Partial thromboplastin time, activated (02/21/2018 10:09 PM CDT) PTT 35.1 23.0 - 36.0 sec [facility] Comment: PATHOLOGY AND PTT therapeutic range for [facility] unfractionated heparin is 61.0-112.0 seconds which corresponds to Anti-Xa 0.3-0.7 U/ml. Specimen Blood Performing Organization Address [facility]/[place] [address] PATHOLOGY AND GENOMIC MEDICINE * Prothrombin time with INR (02/21/2018 10:09 PM CDT) Prothrombin time 13.8 12.0 - 15.0 sec [facility] OF PATHOLOGY AND GENOMIC MEDICINE INR 1.0 [facility] OF Comment: PATHOLOGY AND The International Normalized [facility] Ratio (INR) is a therapeutic monitoring tool for patients who are stable on oral anticoagulant therapy. An INR of 2.0-3.0 is suggested for deep vein thrombosis/pulmonary embolism. Specimen Blood Performing Organization Address [facility] [place] [address] PATHOLOGY AND GENOMIC MEDICINE * B natriuretic peptide (02/21/2018 10:09 PM CDT) Only the most recent of 2 results within the time period is included. BNP 186 (H) 0 - 100 pg/mL [facility] OF PATHOLOGY AND GENOMIC MEDICINE Specimen Blood Performing Organization Address [facility]/Zipcode Phone Number [facility] [place] [address] PATHOLOGY AND GENOMIC MEDICINE * Comprehensive metabolic panel (02/21/2018 10:09 PM CDT) Sodium 135 135 - 148 mEq/L [facility] DE[facility] OF PATHOLOGY AND GENOMIC MEDICINE Potassium SEE COMMENT 3.5 - 5.0 mEq/L [facility] OF Comment: PATHOLOGY AND Footnote--------- GENOMIC MEDICINE Unable to perform testing, specimen is HEMOLYZED.Recollect requested for K AST (tests). [place] ____ (tech ID) [email or web address] ____ (date/time).Credit issued. Chloride 97 (L) 98 - 112 mEq/L [facility] DEPARTMENT OF PATHOLOGY AND GENOMIC MEDICINE CO2 21 (L) 24 - 31 mEq/L [facility] DEPARTMENT OF PATHOLOGY AND GENOMIC MEDICINE Anion gap 17@ANIO (H) 7 - 15 mEq/L [facility] DEPARTMENT OF PATHOLOGY AND GENOMIC MEDICINE BUN 18 8 - 23 mg/dL [facility] DEPARTMENT OF PATHOLOGY AND GENOMIC MEDICINE Creatinine 0.9 0.7 - 1.2 mg/dL [facility] DEPARTMENT OF PATHOLOGY AND GENOMIC MEDICINE Glucose 155 (H) 65 - 99 mg/dL [facility] DEPARTMENT OF PATHOLOGY AND GENOMIC MEDICINE Calcium 9.4 8.8 - 10.2 mg/dL [facility] DEPARTMENT OF PATHOLOGY AND GENOMIC MEDICINE Protein 7.3 6.3 - 8.3 g/dL [facility] DEPARTMENT OF Comment: PATHOLOGY AND GENOMIC MEDICINE 4.6-7.0 g/dL 1 week 4.4-7.6 g/dL 7 months-1year 5.1-7.3 g/dL 1-2 years5.6-7 .5 g/dL >3 years6.0-8 .0 g/dL 18-150 6.3-8.3 g/dL Albumin 3.7 3.5 - 5.0 g/dL [facility] DEPARTMENT OF PATHOLOGY AND GENOMIC MEDICINE A/G ratio 1.0 0.7 - 3.8 [facility] DEPARTMENT OF PATHOLOGY AND GENOMIC MEDICINE Alkaline phosphatase 50 40 - 129 U/L [facility] DEPARTMENT OF PATHOLOGY AND GENOMIC MEDICINE AST SEE COMMENTComment: 10 - 50 U/L [facility] DEPARTMENT OF Footnote--------- PATHOLOGY AND GENOMIC MEDICINE ALT 30 5 - 50 U/L [facility] DEPARTMENT OF PATHOLOGY AND GENOMIC MEDICINE Total bilirubin 0.5 0.0 - 1.2 mg/dL [facility] DEPARTMENT OF PATHOLOGY AND GENOMIC MEDICINE Specimen Plasma specimen Performing Organization Address City/State/Zipcode Phone Number [facility] DEPARTMENT OF [address] [place] [address] PATHOLOGY AND GENOMIC MEDICINE * CBC hemogram (12/17/2017 10:50 AM CDT) WBC 8.95 4.50 - 11.00 k/uL [facility] DEPARTMENT OF PATHOLOGY AND GENOMIC MEDICINE RBC 5.15 4.40 - 6.00 m/uL [facility] DEPARTMENT OF PATHOLOGY AND GENOMIC MEDICINE HGB 16.5 14.0 - 18.0 g/dL [facility] DEPARTMENT OF PATHOLOGY AND GENOMIC MEDICINE HCT 47.0 41.0 - 51.0 % [facility] DEPARTMENT OF PATHOLOGY AND GENOMIC MEDICINE MCV 91.3 82.0 - 100.0 fL [facility] DEPARTMENT OF PATHOLOGY AND GENOMIC MEDICINE MCH 32.0 27.0 - 34.0 pg [facility] DEPARTMENT OF PATHOLOGY AND GENOMIC MEDICINE MCHC 35.1 31.0 - 37.0 g/dL [facility] DEPARTMENT OF PATHOLOGY AND GENOMIC MEDICINE RDW - SD 41.9 37.0 - 55.0 fL [facility] DEPARTMENT OF PATHOLOGY AND GENOMIC MEDICINE MPV 10.0 8.8 - 13.2 fL [facility] DEPARTMENT OF PATHOLOGY AND GENOMIC MEDICINE Platelet count 196 150 - 400 k/uL [facility] DEPARTMENT OF PATHOLOGY AND GENOMIC MEDICINE Nucleated RBC 0.00 /100 WBC [facility] DEPARTMENT OF PATHOLOGY AND GENOMIC MEDICINE Specimen Blood Performing Organization Address City/[facility] Phone Number [facility] DEPARTMENT OF [address] [place] [id number] PATHOLOGY AND GENOMIC MEDICINE * XR Ankle 3 Vw Bilateral (12/14/2017 1:54 PM CDT) Narrative Performed At EXAMINATION:XR ANKLE 3 VW BILATERAL [facility] CLINICAL HISTORY:M79.609 Pain in unspecified limb, m79.609 COMPARISON:None. IMPRESSION: 1.There is mild soft tissue swelling about the bilateral ankles at the lateral aspects. Superior and inferior patellar osteophytes are seen. No fracture or dislocation is identified. No erosions are seen. [facility]-[id number] Procedure Note Hm Interface, Radiology Results Incoming - 12/14/2017 2:36 PM CDT EXAMINATION: XR ANKLE 3 VW BILATERAL CLINICAL HISTORY: M79.609 Pain in unspecified limb, m79.609 COMPARISON: None. IMPRESSION: 1. There is mild soft tissue swelling about the bilateral ankles at the lateral aspects. Superior and inferior patellar osteophytes are seen. No fracture or dislocation is identified. No erosions are seen. [facility]-[id number] Performing Organization Address [facility] Phone Number [facility] [address] [place] [address] * XR Foot 3 Vw Bilateral (12/14/2017 [...] bilaterally. No fracture or dislocation is seen. [facility]-[id number] Procedure Note Hm Interface, Radiology Results - [...] bilaterally. No fracture or dislocation is seen. [facility]-[id number] Performing Organization Address City/State/Zipcode Phone Number [facility] [address] [place] [address] after 09/16/2017 Insurance Payer Benefit Subscriber ID Type Phone Address Plan / Group MEDICARE MEDICARE xxxxxxxxxx Medicare [place], [place] PART A AND B COMMERCIAL MISC MISC xxxxxxxxxxxx Commercial COMMERCIAL Advance Directives Patient has advance care planning documents on file. For more information, tejinder german contact: Omid Smith [address] [place] [address]
[2018-09-17] MEDS: CEFTRIAXONE SOD 1 GRAM/0.9% SOD CHL 50ML BAG IV SCH (20:13)
[2018-09-17] MEDS: SODIUM CHLORIDE 0.9% 1000ML 1,000 ML IV SCH (20:13)
[2018-09-17] MEDS ORDERED: IOPAMIDOL 370 MG/ML 200 ML INFUS..BTL INJ ONE (20:42)
[2018-09-17] MEDS ORDERED: SODIUM CHLORIDE 0.9% 50ML 50 ML ONE (20:42)
--- NOTE | 2018-09-17 21:17 | Diagnostic Imaging Report ---
EXAM: CT Chest WITH contrast 09/17/2018 7:31 PM INDICATION: Shortness of Breath COMPARISON: None TECHNIQUE: Chest was scanned utilizing a multidetector helical scanner from the lung apex through the level of the adrenal glands without administration of IV contrast. Coronal and sagittal reformations were obtained. PE protocol was performed. IV CONTRAST: 100 mL of Omnipaque 300 COMPLICATIONS: None RADIATION DOSE: Total DLP: 609.22 mGy*cm Estimated effective dose: (DLP x 0.014 x size factor) mSv Dose modulation, iterative reconstruction, and/or weight based adjustment of the mA/kV was utilized to reduce the radiation dose to as low as reasonably achievable. FINDINGS: LINES/ TUBES: None. LUNGS AND AIRWAYS: No filling defect is identified within the pulmonary arteries to the segmental level. Diffuse subpleural reticulations with mild honeycombing without basilar predominance. No consolidations. Airways are normal. PLEURA: The pleural spaces are clear. HEART AND MEDIASTINUM: The thyroid gland is normal. No mediastinal, hilar or axillary lymphadenopathy. The heart is normal in size.. There is no pericardial effusion. Main pulmonary artery measures 3.2 cm, upper limits of normal. Diffuse coronary artery calcifications. UPPER ABDOMEN: Unremarkable. BONES: There are degenerative changes in the thoracic spine. Lower cervical fusion hardware. SOFT TISSUES: Unremarkable. IMPRESSION: No pulmonary emboli or acute thoracic abnormalities. Diffuse mild pulmonary fibrotic changes. Signed by: DR. Thomas Genao MD on 09/17/2018 9:13 PM
[2018-09-17 21:18] LABS: CREATINE KINASE MB 1.9 ng/mL (0-5.0)
[2018-09-17] MEDS: INSULIN REGULAR, HUMAN 100 UNIT/1 ML 3ML VIAL SQ SCH (21:21)
[2018-09-17 21:48] VITALS: BP 166/85
[2018-09-17 22:30] VITALS: BP 166/85
--- NOTE | 2018-09-17 22:37 | NUR ---
called to clarify zithro dose. per er, chest xray shows pneumonia, ct negative for pneumonia. called dr villarreal and asked is he still wants to do zithro, stated not to give. asked him he he still wants to keep rocephin, stated he will assess pt in am and decide.
--- NOTE | 2018-09-17 23:14 | History and Physical ---
CHIEF COMPLAINT: Iaaegp-griu-ucg gentleman comes in with not feeling well. HISTORY OF PRESENTING ILLNESS: This is 82-year-old gentleman with tachycardia, had a workup with Dr. 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 Patient suddenly felt dyspnea and shortness of breath, worsened by walking, and no fever, no sputum production, no cough, no sweating was noted. The patient came into the emergency room, was found to have pneumonia and admitted for the same. PAST MEDICAL HISTORY: History of congestive heart failure, history of atrial fibrillation, history of diabetes mellitus, history of myocardial infarction in the past, and history of hyperlipidemia in the past. SURGICAL HISTORY: History of PCI in the past. ALLERGIES: PATIENT HAS NO DRUG ALLERGIES. MEDICATIONS: He takes at home clopidogrel 75 mg, gabapentin 300 mg at nighttime, NovoLog 70 per 30 fifteen units at nighttime, levothyroxine 25 mcg in the morning, magnesium oxide 400 mg, metoprolol 12.5 mg twice a day, aspirin 81 mg, and fish oil 1000 mg daily. SOCIAL HISTORY: No ETOH, no IV drug abuse, and no history of smoking. Lives with his . PHYSICAL EXAMINATION: VITAL SIGNS: Temperature is 97, blood pressure is 147/72, pulse oximetry of 96%, pulse is 64. Patient is satting at 96% on room air. HEENT: Normocephalic, atraumatic. CVS: S1 and S2 normal. Regular rate and rhythm. ABDOMEN: Nontender, nondistended. EXTREMITIES: No clubbing, no cyanosis, no edema. NEUROLOGICAL: Alert and oriented x3. No sensory motor deficits noted too. EKG showed no acute process, wide-complex bradycardia, ventricular ectopic rhythm, premature ventricular contractions also noted. Patient's chest x-ray showed no pulmonary edema, mild patchy opacities in lung bases, nodular opacities overlying the left lower lung field which could represent atelectasis. LABORATORY STUDIES: Showed mild leukocytosis 11.93, no left shift. Chemistry, comprehensive metabolic panel was normal. Cardiac labs are normal. Clean-catch urinalysis normal. Other labs, TSH were normal too. ASSESSMENT: 1. Dizziness. Dr. Crockett has been consulted. Possibly will need a pacemaker with defibrillator. Will continue to monitor the patient. 2. For his pneumonia, the patient has been started on antibiotics. Will continue to monitor the patient. A chest computerized tomography will be done to rule out any other acute processes. Further recommendations per clinical course. Will continue to monitor the patient with Dr. Crockett. Continue with his medications and also continue with sliding scale for diabetes mellitus. Job#: [id number]
[2018-09-17] MEDS: ALBUTEROL SULF 0.083% NEB SOLN 3 ML NEB NEB SCH (23:15)
[2018-09-17] MEDS: IPRATROPIUM BROMIDE 0.02% 2.5 ML NEB NEB SCH (23:15)
--- NOTE | 2018-09-17 23:20 | NUR ---
pt requesing c-pap nad night dose of metoprolol. will await call back.
[2018-09-18] VITALS (7 sets, daily range): BP systolic 126–166; BP diastolic 65–85
--- NOTE | 2018-09-18 00:10 | NUR ---
pt states he cannot sleep on bed. its too hard. pt will sleep on recliner per pt request. he states he sleeps on a recliner at home.
[2018-09-18] MEDS: SODIUM CHLORIDE 0.9% 1000ML 1,000 ML IV SCH ×2 (03:31→05:42)
[2018-09-18] MEDS: IPRATROPIUM BROMIDE 0.02% 2.5 ML NEB NEB SCH ×4 (03:59→19:00)
[2018-09-18] MEDS: ALBUTEROL SULF 0.083% NEB SOLN 3 ML NEB NEB SCH ×6 (03:59→23:00)
[2018-09-18 05:50] LABS: BASOPHILS # (AUTO) 0.1 (0.0-0.1); BASOPHILS % 0.5 % (0.0-1.0); EOSINOPHILS # (AUTO) 0.2 (0.0-0.4); EOSINOPHILS % 1.9 % (0.0-6.0); HEMOGLOBIN 14.7 g/dL (14.0-18.0); LYMPHOCYTES # (AUTO) 4.3 (1.0-3.2); LYMPHOCYTES % 45.4 % (18.0-39.1); MEAN CORPUSCULAR HEMOGLOBIN 32.2 pg (28-32); MEAN CORPUSCULAR VOLUME 91.9 fL (81-99); MONOCYTES # (AUTO) 0.7 (0.2-0.8); NEUTROPHILS # (AUTO) 4.3 (2.1-6.9); NEUTROPHILS % 44.9 % (38.7-80.0); PLATELET COUNT 183 x10e3/uL (140-360); RED BLOOD COUNT 4.57 x10e6/uL (4.3-5.7); RED CELL DISTRIBUTION WIDTH 13.7 % (11.7-14.4)
[2018-09-18 06:19] LABS: ALANINE AMINOTRANSFERASE 14 IU/L (0-55); ALBUMIN 3.3 g/dL (3.5-5.0); ALBUMIN/GLOBULIN RATIO 1.1 (0.8-2.0); ALKALINE PHOSPHATASE 48 IU/L (40-150); ANION GAP 11.6 mmol/L (8-16); BLOOD UREA NITROGEN 19 mg/dL (7-26); BUN/CREATININE RATIO 22 (6-25); CALCIUM 9.1 mg/dL (8.4-10.2); CARBON DIOXIDE 24 mmol/L (22-29); CHLORIDE 102 mmol/L (98-107); CREATINE KINASE 440 IU/L (30-200); CREATININE, SERUM 0.85 mg/dL (0.72-1.25); EST GLOMERULAR FILTRATION RATE > 60 ML/MIN (60-); GLUCOSE 138 mg/dL (74-118); POTASSIUM 3.6 mmol/L (3.5-5.1); SODIUM 134 mmol/L (136-145)
[2018-09-18] MEDS ORDERED: SODIUM CHLORIDE FLUSH 10 ML SYR INJ PRN (07:15)
--- NOTE | 2018-09-18 07:21 | Progress Note ---
DATE: Patient is currently admitted for pneumonia and also sick sinus syndrome. Patient is currently asymptomatic. No complaints. Did not get his CPAP through the night and needed one. OBJECTIVE VITAL SIGNS: Temperature is 96.6, pulse of 63, respirations of 19, blood pressure is 54/76, and pulse oximetry of 94%. HEENT: Normocephalic and atraumatic. Pupils are reactive to light and accommodation. CV: S1 and S2. Irineo with regular rate. ABDOMEN: Nontender and nondistended. LUNGS: Clear to auscultation bilaterally. EXTREMITIES: No clubbing. Trace edema present. IMAGING STUDIES: Chest x-ray did show mild patchy opacity lung base. Nodular opacities overlying the left midlung. Patient's CT scan which was done yesterday showed no pulmonary embolism or acute thoracic abnormalities. Some mild diffuse pulmonary fibrotic changes in the lower lung bases. ASSESSMENT 1. Diabetes mellitus. 2. Hypertension. 3. Hyperlipidemia: Will continue on his home medications. PLAN: Discontinue his antibiotics at this time. Dr. Crockett has been assessing him for sick sinus syndrome. Will need a pacemaker. This can be done on an outpatient basis. Will go ahead and discharge the patient if cardiology is okay with discharge. At this time, will discontinue all antibiotics. Continue with his home medications. Further recommendations as per cardiology. Job#: [id number] JOSEFA
[2018-09-18] MEDS: INSULIN REGULAR, HUMAN 100 UNIT/1 ML 3ML VIAL SQ SCH ×4 (07:30→21:00)
--- NOTE | 2018-09-18 08:40 | NUR ---
Pt received resting in bed. Alert and oriented x4. Oriented to staff and surroundings. Encouraged to press call van if help needed. All meds given as ordered. Call van within reach. Will monitor closely.
[2018-09-18] MEDS: METOPROLOL TARTRATE 25 MG TAB PO SCH (08:41)
[2018-09-18] MEDS: CLOPIDOGREL BISULFATE 75 MG TAB PO SCH (08:41)
[2018-09-18] MEDS: MAGNESIUM OXIDE 400 MG TAB PO SCH (08:41)
[2018-09-18] MEDS: OMEGA 3 POLYUNSAT FATTY ACIDS 1000 MG SOFTGEL PO SCH (08:41)
[2018-09-18] MEDS: INSULIN ASPART 70/30 100 UNITS/ML VIAL SC SCH (08:42)
[2018-09-18] MEDS ORDERED: NON-FORMULARY MEDICATION ([Aspirin] 81 MG) PO SCH (09:00)
[2018-09-18] MEDS ORDERED: FISH OIL 1000 MG PO SCH (09:00)
[2018-09-18] MEDS ORDERED: NON-FORMULARY MEDICATION (Insuln Asp Prt/Insulin Aspart (Novolog Mix 70-30 Flexpen Syrn) 2 SQ SCH (09:00)
[2018-09-18] MEDS: ASPIRIN 81 MG ENTERIC COATED PO SCH (12:50)
--- NOTE | 2018-09-18 16:39 | NUR ---
CASE MANAGEMENT INITIAL ASSESSMENT Associate Project Manager to bedside to discuss plan of care with patient/family. CM/SW role and care transitions discussed. Anticipated discharge plan discussed along with duration of care. CM/SW discussed patients right to make decisions in care. CM/SW work hours given. Patient lives: Admit/Transfer: ER POA/Emergency contact: SEVERIANO CHEEK [phone] Current/Previous Home Health: NONE PCP/Follow-up Care: GEOFFREY ESQUEDA Current/Previous DME: CPAP, GLUCOMETER Other Services: NONE Employment Status: RETIRED Areas of Concerns: NONE Referral Needs: NONE Education Needs: F/U WITH DR DHEERAJ GRANDA/[facility] given and signed (if applicable): Goal for discharge:HOME CM/SW left business card at the bedside with contact information. Name and number was also written on the patients whiteboard. Patient verbalized understanding of discussion. CM will follow-up with ongoing discharge and transition of care needs.
[2018-09-18] MEDS: CEFTRIAXONE SOD 1 GRAM/0.9% SOD CHL 50ML BAG IV SCH (19:45)
--- NOTE | 2018-09-18 20:02 | NUR ---
call placed to dr villarreal. pt does not want rocephine. per pt, said he "does not have pneumonia". will await call back.
--- NOTE | 2018-09-18 20:06 | NUR ---
SPOKE WITH DR ESQUEDA. RECEIVED ORDERS TO DC ROCEPHIN.
[2018-09-18] MEDS ORDERED: INSULIN ASPART 70/30 100 UNITS/ML VIAL SC SCH (21:00)
[2018-09-18] MEDS ORDERED: LEVOTHYROXINE SODIUM 25 MCG TABLET PO SCH ×2 (21:00→21:34)
[2018-09-18] MEDS ORDERED: NON-FORMULARY MEDICATION (Insuln Asp Prt/Insulin Aspart (Novolog Mix 70-30 Flexpen Syrn) 1 SQ SCH (21:00)
[2018-09-18] MEDS ORDERED: GABAPENTIN 300 MG CAP PO SCH (21:00)
--- NOTE | 2018-09-18 22:30 | NUR ---
PT AWAKE, ALERT. PT TOOK HIBICLENS SHOWER ALREADY. NO NEEDS AT THIS TIME. AT BEDSIDE. PT REMINDED TO REMAIN NPO AFTER MIDNIGHT. PT REFUSED GABAPENTIN AND NOVOLOG MED. PT AGREED TO SLIDING SCALE.
[2018-09-19] VITALS (18 sets, daily range): BP systolic 110–164; BP diastolic 57–97
--- NOTE | 2018-09-19 00:40 | NUR ---
RESP AT BEDSIDE. PT DID NOT TOLERATE BIPAP MACHINE. STATES THAT IT IS "BACKING UP HIS SINUSES". ALSO DID NOT TOLERATE BEING IN THE BED. PT WILL SLEEP IN RECLINER WITH NO BIPAP. DOES NOT WANT IT.
[2018-09-19] MEDS: IPRATROPIUM BROMIDE 0.02% 2.5 ML NEB NEB SCH ×3 (01:00→12:40)
[2018-09-19] MEDS: ALBUTEROL SULF 0.083% NEB SOLN 3 ML NEB NEB SCH ×4 (03:00→12:40)
--- NOTE | 2018-09-19 03:32 | Consultation ---
DATE OF CONSULTATION: September 18, 2018 CARDIOLOGY CONSULT NOTE REASON FOR CONSULT: Shortness of breath and dizziness. CHIEF COMPLAINT: Shortness of breath and dizziness. HISTORY OF PRESENT ILLNESS: Patient is an 82-year-old man with history of chronic atrial fibrillation, chronic systolic heart failure, history of CAD status post multiple stents who presented after having an episode of shortness of breath and dizziness that did not improve after several minutes. No syncope. No chest pain. No preceding palpitations. He was concerned that it did not get better after several minutes. They were near the ER; so, his decided to bring him in for further evaluation. On initial chest x-ray, there was concern for some infiltrates concerning for pneumonia; however, patient did not have any symptoms of pneumonia including fevers, cough, or elevated white count. Patient is currently feeling significantly better; however, he says his heart rate has been up and down and he is pending a coronary angiogram to see if he needs defibrillator placed. PAST MEDICAL HISTORY 1. Chronic atrial fibrillation. 2. Chronic systolic heart failure. 3. Coronary artery disease. 4. Hypertension. 5. Hyperlipidemia. 6. Obesity. SOCIAL HISTORY: Patient does not smoke, drink, or abuse drugs. FAMILY HISTORY: No family history of early CAD or sudden cardiac . REVIEW OF SYSTEMS: As per HPI, otherwise negative. OUTPATIENT MEDICATIONS: Reviewed. PHYSICAL EXAMINATION VITAL SIGNS: Temperature 96.7, pulse 78, respiratory rate 20, blood pressure 126/71, and satting 95% on room air. GENERAL: Elderly man, no acute distress. CARDIOVASCULAR: Irregular rate and rhythm. No murmurs, rubs, or gallops. LUNGS: Clear to auscultation bilaterally except for mild crackles at the bases. ABDOMEN: Obese, soft, nontender. Mildly distended. NEURO AND PSYCH: Alert and oriented to person, place, and time. Normal affect. INPATIENT MEDICATIONS: Reviewed. LABORATORY DATA: Reviewed. Cardiac enzymes negative x3. IMAGING DATA: Reviewed. Chest CT done today shows no pulmonary embolus or acute thoracic abnormalities. Diffuse mild pulmonary fibrotic changes. No evidence of pneumonia or pulmonary edema. TELEMETRY DATA: Reviewed, shows left bundle-branch block with PVCs, in normal sinus rhythm. ASSESSMENT 1. Phocr-yi-hokrrty systolic heart failure. 2. Chronic atrial fibrillation. 3. Coronary artery disease, status post multiple percutaneous coronary interventions in the past. 4. Ischemic cardiomyopathy, ejection fraction less than 35%. PLAN: Patient is doing better already from his CHF standpoint. Continue home cardiovascular medications. Plan for coronary angiogram tomorrow prior to discharge. Thank you for this consult. We will continue to follow. Job#: [id number] CF
--- NOTE | 2018-09-19 05:04 | NUR ---
PT STATES THAT HE "FEELS CONGESTED". PT IS HAVING A NON-PRODUCTIVE COUGH. STATES THAT WHEN HE COUGHS UP, HES NOT "ABLE TO SPIT OUT PHLEGM AND SWALLOWS IT AGAIN." PT WANT S TO KNOW IF AN X-RAY NEEDS TO BE DONE BEFORE HEART CATH AND IF ITS GOING TO INTERFERE WITH THE HEART CATH. INFORMED HIM DR DHEERAJ PRIDE EARLY IN AM AND WILL LET DOCTOR KNOW OF SYMPTOMS.
[2018-09-19 05:56] LABS: BASOPHILS % 0.4 % (0.0-1.0); EOSINOPHILS # (AUTO) 0.4 (0.0-0.4); EOSINOPHILS % 3.8 % (0.0-6.0); HEMOGLOBIN 15.8 g/dL (14.0-18.0); LYMPHOCYTES # (AUTO) 3.2 (1.0-3.2); LYMPHOCYTES % 34.3 % (18.0-39.1); MEAN CORPUSCULAR HGB CONC 35.1 g/dL (31-35); MEAN CORPUSCULAR VOLUME 91.3 fL (81-99); MONOCYTES # (AUTO) 0.7 (0.2-0.8); MONOCYTES % 7.9 % (4.4-11.3); NEUTROPHILS # (AUTO) 4.9 (2.1-6.9); NEUTROPHILS % 53.3 % (38.7-80.0); PLATELET COUNT 195 x10e3/uL (140-360); RED BLOOD COUNT 4.93 x10e6/uL (4.3-5.7); RED CELL DISTRIBUTION WIDTH 13.7 % (11.7-14.4)
[2018-09-19] MEDS ORDERED: LEVOTHYROXINE SODIUM 25 MCG TABLET PO SCH (06:00)
--- NOTE | 2018-09-19 06:25 | NUR ---
[address]3SPOKE WITH DR ESQUEDA ABOUT PT'S CONCERNS, CHEST XRAY ORDERED.
[2018-09-19 06:29] LABS: BLOOD UREA NITROGEN 21 mg/dL (7-26); BUN/CREATININE RATIO 24 (6-25); CALCIUM 9.9 mg/dL (8.4-10.2); CARBON DIOXIDE 24 mmol/L (22-29); CHLORIDE 105 mmol/L (98-107); CREATININE, SERUM 0.86 mg/dL (0.72-1.25); EST GLOMERULAR FILTRATION RATE > 60 ML/MIN (60-); GLUCOSE 148 mg/dL (74-118); SODIUM 139 mmol/L (136-145)
--- NOTE | 2018-09-19 07:06 | Diagnostic Imaging Report ---
EXAMINATION: CHEST SINGLE (PORTABLE) INDICATION: COUGHING/CONGESTION COMPARISON: Chest CT 09/17/2018 FINDINGS: AP view TUBES and LINES: None. LUNGS: Lungs are well inflated. Chronic appearing interstitial changes. There is no evidence of pneumonia or pulmonary edema. PLEURA: No pleural effusion or pneumothorax. HEART AND MEDIASTINUM: The cardiomediastinal silhouette is unremarkable. BONES AND SOFT TISSUES: No acute osseous lesion. Lower cervical fusion hardware. Soft tissues are unremarkable. UPPER ABDOMEN: No free air under the diaphragm. IMPRESSION: No acute thoracic abnormality. Signed by: DR. Thomas Genao MD on 09/19/2018 7:03 AM
--- NOTE | 2018-09-19 07:25 | Progress Note ---
DATE: Patient is here for pneumonia. Also, the patient is here for AFib. The patient has been seen by cardiology. The patient is scheduled for a cardiac cath. The patient also has ischemic cardiomyopathy with an ejection fraction of less than 35%. Currently, the patient is asymptomatic. Currently, the patient complains of some congestion. Could not tolerate his BiPAP yesterday. Therefore, developed some congestion and currently having nasal drip. OBJECTIVE VITAL SIGNS: Temperature is 96.5, pulse of 60, respirations of 18, blood pressure is 164/91, pulse oximetry 95% on room air. HEENT: Normocephalic and atraumatic. Pupils are reactive to light and accommodation. CV: S1 and S2 irregularly irregular. LUNGS: Clear to auscultation. Mild crackles at bases. ABDOMEN: Soft and nontender. NEUROLOGICAL: Alert and oriented times 3 with no focal deficits. The patient's cardiac enzymes have been negative times 3. The patient's BMP and CBC has been reviewed. Telemetry shows atrial fibrillation. ASSESSMENT 1. Mnckb-gy-qdgoogb systolic heart failure. 2. History of cardiomyopathy. 3. History of hypertension. 4. History of hyperlipidemia. 5. History of questionable pneumonia. PLAN: Have a cardiac cath today. The patient will be discharged after coronary angiography depending on findings. Continue with CV medications. Further recommendations per clinical course. Will continue monitoring the patient along with Dr. Harden, who will be doing the angiogram today. Job#: [id number] JOSEFA
[2018-09-19] MEDS: INSULIN REGULAR, HUMAN 100 UNIT/1 ML 3ML VIAL SQ SCH ×3 (07:30→17:24)
[2018-09-19] MEDS: ASPIRIN 81 MG ENTERIC COATED PO SCH (08:32)
[2018-09-19] MEDS: CLOPIDOGREL BISULFATE 75 MG TAB PO SCH (08:33)
[2018-09-19] MEDS: MAGNESIUM OXIDE 400 MG TAB PO SCH (08:33)
--- NOTE | 2018-09-19 08:33 | NUR ---
Pt received resting in recliner. Alert and oriented x3. Plavix & Aspirin given as per Dr. Leon. Pt is NPO for left heart cath. Consent signed. Emotional support given. Will monitor
[2018-09-19] MEDS: INSULIN ASPART 70/30 100 UNITS/ML VIAL SC SCH (09:00)
[2018-09-19] MEDS: METOPROLOL TARTRATE 25 MG TAB PO SCH (09:00)
--- NOTE | 2018-09-19 12:20 | NUR ---
Pt left to veterinarian laboratory animal care
[2018-09-19] MEDS ORDERED: HEPARIN SOD/SOD CHLORIDE 2,000 ML ONE (12:26)
[2018-09-19] MEDS ORDERED: MIDAZOLAM HCL 2 MG/2 ML VIAL ONE (12:31)
[2018-09-19] MEDS ORDERED: VERAPAMIL HCL 2.5 MG/ML 2 ML VIAL ONE (12:31)
[2018-09-19] MEDS ORDERED: HEPARIN SOD (PORCINE) 1000 UNIT/ML 30ML ONE (12:31)
[2018-09-19] MEDS ORDERED: IOPAMIDOL 370 MG/ML 200 ML INFUS..BTL INJ ONE (12:32)
[2018-09-19] MEDS ORDERED: FENTANYL CITRATE/PF 100MCG/2 ML INJ ONE (12:32)
[2018-09-19] MEDS ORDERED: NITROGLYCERIN/D5W 200 MCG/ML 250 ML ONE (12:32)
[2018-09-19] MEDS ORDERED: SODIUM CHLORIDE 0.9% 1000ML 1,000 ML ONE (12:32)
[2018-09-19] MEDS ORDERED: LIDOCAINE HCL 1% LOCAL INJ 20 ML VIAL ONE (12:34)
--- NOTE | 2018-09-19 13:50 | NUR ---
1350 Receive dpt to [facility] Lab recovery Rm #[id number] Identifierx2 [facility] no fix received report from Roxana GOVEA Rt TR band approach. 12cc balloon volume.Site w/o s/s bleeding or hematoma and stable. at bedside. Linda dc teaching done and has has copies of Dc plans.Back to baseline orientation SHIRLEY Resp shallow and regular.Denies necessity to defecate or urinate. Iv infusing w/o s/s infiltration,Bilateral PP x4. TR band titration scheduled for 1430pm. denies co CP or SOB finger food tray ordered.
--- NOTE | 2018-09-19 14:17 | Operative Report ---
DATE OF PROCEDURE: September 19, 2018 INDICATIONS FOR PROCEDURE: Cardiomyopathy, ejection fraction less than 35%, left bundle branch block. PRE-SEDATION ASSESSMENT: The patient's medical history, social history, prior experience with anesthesia was reviewed prior to the procedure. The risks, benefits and alternatives to the procedure were explained to the patient prior to the procedure. Patient was deemed to be an appropriate candidate for moderate sedation and informed consent was obtained prior to the procedure as documented in the medical record. MEDICATIONS: Please see nursing notes for medications administered during the procedure. PROCEDURE PERFORMED: Coronary angiography, right radial approach. PROCEDURE DETAILS: The patient was brought to the cardiac catheterization laboratory in a fasting state. Right wrist was prepped and draped in a sterile fashion. A 6-Surinamese slender sheath was inserted into the right radial artery using the modified Seldinger technique. Coronary angiography was performed using a 5-Surinamese radial catheter to engage both the left and right coronary arteries. Multiple orthogonal views were taken of each coronary artery. All catheters were removed over a wire. The case ended without any complications. FINDINGS: Left main coronary artery is large caliber, mild plaquing. Left anterior descending artery is large caliber and goes to the apex. Two significant diagonal branches. Mild plaquing and tortuosity. No obstructive CAD. Left circumflex medium size, non-dominant. Left circumflex with 1 large OM branch. No obstructive CAD. RCA very large and dominant RCA. Two stents in the mid and distal RCA are both patent. There is mild in-stent restenosis at the edges of the previously placed stent, about 10% to 20%. Otherwise, no obstructive disease of the RCA. There is a large RPDA and RPL system distally. ESTIMATED BLOOD LOSS: 20 mL. SPECIMENS REMOVED: None. GRAFTS/IMPLANTS: None. COMPLICATIONS: None. FINAL RECOMMENDATIONS 1. Continue optimal therapy and risk factor control. 2. Follow up with Dr. Mary Gibbs in the clinic 1 week after discharge for further discussion about biventricular ICD placement. Thank you for this consult. Will continue to follow. Job#: [id number] [place]
--- NOTE | 2018-09-19 15:00 | NUR ---
1500 TR band titration started -3cc 12 cc TR band positive 9cc no bleeding,hematoma sats 97% vs stable 1515 -3cc tr band titration stable, positive 6cc,no bleeding ,vs stable ,radial pulse adequate 1530 -3cc tr band titration stable ,positive 3cc, no bleeding ,vs stable ,radial pulse adequate 1545 -3cc tr band titration completed stable transferred Coban dressing ans Tegaderm and wrist support. Positive radial pulse. Ready to floor care Rm [id number] called report to Madeline De Luna and transferred by bed vs sable Iv infusing w/o s/s infiltration. Rt tr band site healthy with dressing intact w/o bleeding.Positive Radial pulse Ok for DC home copies of heart diagram, ekg and teaching tool for pain and TR band care given to family and explained . Knows importance of followup care with MD office. Md office will be called by floor staff to reconcile home meds.
--- NOTE | 2018-09-19 16:20 | NUR ---
Pt returned from lab engineer with right hand in immobilizer due to access point for procedure
[2018-09-19] MEDS: OMEGA 3 POLYUNSAT FATTY ACIDS 1000 MG SOFTGEL PO SCH (17:23)
--- NOTE | 2018-09-19 18:30 | NUR ---
Pt & given discharge instructions regarding meds, diet, activities, and follow up appointment. Both verbalized understanding of teaching left unit in wheelchair to private car
--- NOTE | 2018-09-19 23:52 | Progress Note ---
DATE: September 19, 2018 CARDIOLOGY PROGRESS NOTE SUBJECTIVE: No major events overnight. Had coronary angiogram today, showed nonobstructive CAD. OBJECTIVE: VITAL SIGNS: Temperature 96.8, pulse 54, respiratory rate 18, blood pressure 149/70, satting 95%. GENERAL: Obese elderly man, in no acute distress. CARDIOVASCULAR: Regular rate and rhythm. No murmurs, rubs, or gallops. LUNGS: Clear to auscultation bilaterally. ABDOMEN: Obese, soft, nontender, nondistended. NEURO AND PSYCH: Alert and oriented to person, place, and time. Normal affect. INPATIENT MEDICATIONS: Reviewed. LABORATORY DATA: Reviewed. IMAGING DATA: Reviewed. CARDIOVASCULAR MEDICATIONS: Reviewed. ASSESSMENT: 1. Chronic systolic heart failure. 2. Coronary artery disease, status post percutaneous coronary intervention in the past. 3. Hypertension. 4. Hyperlipidemia. 5. Obesity. PLAN: Had coronary angiography today showing nonobstructive CAD and patent previous stents. Patient is okay to be discharged from a cardiovascular standpoint. He will follow up with his outpatient homebirth midwife, Dr. Mary Gibbs for further discussion for ICD placement for his cardiomyopathy. Thank you for this consult. Will continue to follow. Job#: [id number]
== END 2018-09-19 18:32 | disposition home or self-care (01) | DRG 286 ==
LOC: ER 11:51 → ERHOLD 19:54 → MED/SURG3 22:03
PROVIDERS: ADMIT Family Medicine; ATTEND Family Medicine
PROC: B2111ZZ Fluoroscopy of Multiple Coronary Arteries using Low Osmolar Contrast (ICD-10-PCS; principal; 2018-09-19)
DX: I11.0 Hypertensive heart disease with heart failure (principal); J15.9 Unspecified bacterial pneumonia; I50.23 Acute on chronic systolic (congestive) heart failure; I49.3 Ventricular premature depolarization; R42 Dizziness and giddiness; I48.2 Chronic atrial fibrillation; I25.10 Atherosclerotic heart disease of native coronary artery without angina pectoris; E11.9 Type 2 diabetes mellitus without complications; I25.2 Old myocardial infarction; E78.5 Hyperlipidemia, unspecified; E66.9 Obesity, unspecified; Z68.37 Body mass index [BMI] 37.0-37.9, adult; Z79.4 Long term (current) use of insulin; Z79.82 Long term (current) use of aspirin; Z82.49 Family history of ischemic heart disease and other diseases of the circulatory system; Z95.5 Presence of coronary angioplasty implant and graft
CPT/HCPCS: 36415; 71045; 71046; 71260; 80048; 80053; 81001; 82550; 82553; 82948; 83605; 83735; 83880; 84443; 84484; 85025; 85610; 85730; 87040; 87071; 87205; 93005; 93454; 94640; 94660; 99284; J0696; J1644; J1815; J2001; J2250; J7030; Q9967

== ENCOUNTER 2018-10-30 08:28 | Emergency (ER) | payer MEDICARE, OTHER ==
[~2018-10-30] VITALS: Ht 177.8 cm; Wt 111.1 kg
[~2018-10-30 08:28] MED LIST changes: +CLOPIDOGREL75 MG PO; +LEVOTHYROXINE25 MCG PO; +LOPRESSOR25 MG PO; +MAGNESIUM OXID400 MG PO; +NOVOLOG MI100 UNIT/1 SQ
--- OUTSIDE RECORDS SUMMARY | 2018-10-30 08:31 | XMS REPORT | Clinical Summary ---
Author Author [facility] Organization [place] [facility] Address Unknown Phone Unavailable Care Team Providers Care Skiing Instructor Name Role Phone Asked, No Pcp PCP [...] (Primary Dx) 12/14/2017 Transcribe Access Orders after 10/29/2017 Immunizations Name Dates Previously Given Next Due [...] EXAM 1945 URINE MICROALBUMIN 1947 SHINGLES VACCINES (#1) 1987 65+ PNEUMOCOCCAL VACCINE 2002 (1 of 2 - PCV13) PNEUMOCOCCAL 2002 POLYSACCHARIDE VACCINE AGE 65 AND OVER INFLUENZA VACCINE 03/27/2018 05/14/2017 Procedures Comments Procedure [...] MMODE SPECTRAL 10:52 AM CDT COLOR DOPPLER (40789) MRI BRAIN WO CONTRAST STAT 02/22/2018 10:13 [...] extremity, 1:54 PM CDT unspecified extremity after 10/29/2017 Results * POC glucose (02/23/2018 11:38 AM CDT) Only the most recent of 9 results within the time period is included. POC glucose 142 (H) 65 - 99 mg/dL [facility] DEPARTMENT OF Comment: PATHOLOGY AND [facility] Notified RN GENOMIC MEDICINE Meter ID: [id number] Passenger Car Cleaning Supervisor: Jin Garcia Performing Organization Address City/[facility] [place] [address] PATHOLOGY AND GENOMIC MEDICINE * Estimated GFR (02/23/2018 4:22 AM CDT) Only the most recent of 4 results within the time period is included. GFR Non Af Amer 81 mL/min/1.[address] [facility] DEPARTMENT OF PATHOLOGY AND GENOMIC MEDICINE GFR Af Amer >90 mL/min/1.[address] [facility] DEPARTMENT OF Comment: PATHOLOGY AND Chronic [...] Americans. Specimen Plasma specimen Performing Organization Address City/[facility]/[place] [address] PATHOLOGY AND GENOMIC MEDICINE * CBC with platelet and differential (02/23/2018 4:22 AM CDT) Only the most recent of 3 results within the time period is included. WBC 9.31 4.50 - 11.00 k/uL [facility] DEPARTMENT OF PATHOLOGY AND GENOMIC MEDICINE RBC 4.84 4.40 - 6.00 m/uL [facility] DEPARTMENT OF PATHOLOGY AND GENOMIC MEDICINE HGB 15.5 14.0 - 18.0 g/dL [facility] DEPARTMENT OF PATHOLOGY AND GENOMIC MEDICINE HCT 45.3 41.0 - 51.0 % [facility] DEPARTMENT OF PATHOLOGY AND GENOMIC MEDICINE MCV 93.6 82.0 - 100.[address] [facility] DEPARTMENT OF PATHOLOGY AND GENOMIC MEDICINE MCH 32.0 27.0 - 34.[address] [facility] DEPARTMENT OF PATHOLOGY AND GENOMIC MEDICINE MCHC 34.2 31.0 - 37.0 g/dL [facility] DEPARTMENT OF PATHOLOGY AND GENOMIC MEDICINE RDW - SD 44.5 37.0 - 55.[address] [facility] DEPARTMENT OF PATHOLOGY AND GENOMIC MEDICINE MPV 9.6 8.8 - 13.[address] [facility] DEPARTMENT OF PATHOLOGY AND GENOMIC MEDICINE Platelet count 186 150 - 400 k/uL [facility] DEPARTMENT OF PATHOLOGY AND GENOMIC MEDICINE Nucleated RBC 0.00 /[address] [facility] DEPARTMENT OF PATHOLOGY AND GENOMIC MEDICINE Neutrophils 54.4 39.0 - 69.0 % [facility] DEPARTMENT OF PATHOLOGY AND GENOMIC MEDICINE Lymphocytes 33.8 25.0 - 45.0 % [facility] DEPARTMENT OF PATHOLOGY AND GENOMIC MEDICINE Monocytes 8.9 0.0 - 10.0 % [facility] DEPARTMENT OF PATHOLOGY AND GENOMIC MEDICINE Eosinophils 1.9 0.0 - 5.0 % [facility] DEPARTMENT OF PATHOLOGY AND GENOMIC MEDICINE Basophils 0.6 0.0 - 1.0 % [facility] DEPARTMENT OF PATHOLOGY AND GENOMIC MEDICINE Immature granulocytes 0.4Comment: "Immature 0.0 - 1.0 % [facility] DEPARTMENT OF granulocytes" (promyelocytes, PATHOLOGY AND myelocytes, metamyelocytes) GENOMIC MEDICINE Specimen Blood Performing Organization Address City/[facility] [place] [address] PATHOLOGY AND GENOMIC [facility] * Magnesium level (02/23/2018 4:22 AM CDT) Only the most recent of 2 results within the time period is included. Magnesium 2.3 1.6 - 2.4 mg/dL [facility] DEPARTMENT OF PATHOLOGY AND GENOMIC MEDICINE Specimen Plasma specimen Performing Organization Address City/[facility]/[place] [address] PATHOLOGY AND [employer] [facility] * Basic metabolic panel (02/23/2018 4:22 AM CDT) Only the most recent of 3 results within the time period is included. Sodium 138 135 - 148 mEq/L [facility] DEPARTMENT OF PATHOLOGY AND GENOMIC MEDICINE Potassium 3.8 3.5 - 5.0 mEq/L [facility] DEPARTMENT OF PATHOLOGY AND GENOMIC MEDICINE Chloride 101 98 - 112 mEq/L [facility] DEPARTMENT OF PATHOLOGY AND GENOMIC MEDICINE CO2 23 (L) 24 - 31 mEq/L [facility] DEPARTMENT OF PATHOLOGY AND GENOMIC MEDICINE Anion gap 14@ANIO 7 - 15 mEq/L [facility] DEPARTMENT OF PATHOLOGY AND GENOMIC MEDICINE BUN 21 8 - 23 mg/dL [facility] DEPARTMENT OF PATHOLOGY AND GENOMIC MEDICINE Creatinine 0.9 0.7 - 1.2 mg/dL [facility] DEPARTMENT OF PATHOLOGY AND GENOMIC MEDICINE Glucose 131 (H) 65 - 99 mg/dL [facility] DEPARTMENT OF PATHOLOGY AND GENOMIC MEDICINE Calcium 9.2 8.8 - 10.2 mg/dL [facility] DEPARTMENT OF PATHOLOGY AND GENOMIC MEDICINE Specimen Plasma specimen Performing Organization Address City/State/Zipcode Phone Number [facility] DEPARTMENT OF [address] [place] [address] PATHOLOGY AND GENOMIC MEDICINE * Echocardiogram complete w contrast and 3D if needed (02/22/2018 10:52 AM CDT) Narrative Performed At [facility] Echocardiography Report [address] [place], [facility] [address], [place] [address] Pat.Name:TITI MAY Pat.ID:[id number] St.Date: 02/22/2018 Refer.MD:NAZIA MOREL MD Exam Time: 11:25:00 AM Study Type:Routine Echo Height:70.47in Weight:242lb BSA: 2.28 m2 DOBAge:1935,82Y Sex: MALEBP:125/63 HR:63 bpmSonogrphr: [place] Pat. Stat.:Inpatient Room:[facility] Study Status:Final Echo Event ID:[id number] Order ID:[id number] Reason for Study:Chest Pain Procedures:2D Echo, Colorflow [...] PA systolic pressure. MEASUREMENTS: 2D Parasternal Long [place] LVIDd5.6 cmIndex2.5 cm/m Ao Rtd 3.3 cm Index1.5 cm/m LVIDs4.8 cm LV Pbpe835.9 g(122-174) LV%fs 15.3 % LVM Gnvwz894.3 g/m2 IVSd 1.2 cmRWT0.5 LVPWd1.3 cm LA Sng Plane LA Area 23.6 cm2(8.8-23.4) LA Vol78.4 ml Index34.4 ml/m LA LngAx 5.9 cm Signed 02/22/2018 12:00 PM Clint Hand M.D. Procedure Note Interface, Radiology Results In - 02/22/2018 12:01 PM CDT Echocardiography Report [address] [place] [address] Pat.Name: TITI MAY Pat.ID: [id number] .Date: 02/22/2018 Refer.MD: NAZIA MOREL MD Exam Time: 11:25:00 AM Study Type:Routine Echo Height: 70.47in Weight: 242lb BSA: 2.28 m2 Age: 2 1935,82Y Sex: MALE BP: 125/63 HR: 63 bpm Sonogrphr: [place] Pat. Stat.:Inpatient Room: [facility] Study Status:Final Echo Event ID:[id number] Order ID: [id number] Reason for Study:Chest Pain Procedures:2D Echo, Colorflow [...] PA systolic pressure. MEASUREMENTS: 2D Parasternal Long [place] LVIDd 5.6 cm Index 2.5 cm/m Ao [...] PM Clint Hand M.D. Performing Organization Address [facility] Centercode Phone Number [facility] [address] [place] [address] * MRI Brain Wo Contrast (02/22/2018 10:13 [...] recent infarct or other acute intracranial abnormality. [id number] Procedure Note Interface, Radiology Results Incoming - [...] recent infarct or other acute intracranial abnormality. [id number] Performing Organization Address [facility] Centercode Phone Number [facility] [address] [place] [address] * Syphilis treponemal IgG (02/22/2018 8:53 AM CDT) Only the most recent of 2 results within the time period is included. Syphilis treponemal IgG Non-reactiveComment: Non-reactive [facility] DEPARTMENT OF Non-reactive: No serological PATHOLOGY AND evidence of Syphilis infection GENOMIC MEDICINE Specimen Serum Performing Organization Address City/[facility] Centercode Phone Number [facility] [place] [address] PATHOLOGY AND [facility] * Folate level (02/22/2018 8:52 AM CDT) Only the most recent of 2 results within the time period is included. Folate 16.0 4.8 - 24.2 ng/mL [facility] DEPARTMENT OF PATHOLOGY AND GENOMIC MEDICINE Specimen Serum Performing Organization Address City/[facility] [place] [address] PATHOLOGY AND [facility] * Vitamin B12 level (02/22/2018 8:52 AM CDT) Only the most recent of 2 results within the time period is included. Vitamin B12 294 211 - 946 pg/mL [facility] DEPARTMENT OF Comment: PATHOLOGY AND Significant overlap exists [facility] between normal and deficiency states. However, most patients with deficiencies will have Serum B12 <200 pg/mL. Specimen Serum Performing Organization Address [facility] [place] [address] PATHOLOGY AND [facility] * T3, free (02/22/2018 4:00 AM CDT) T3, free 2.7 2.4 - 4.2 pg/mL [facility] Comment: REFERENCE INTERVAL: Triiodothyronine, Free (Free T3) Access complete set of age- and/or gender-specific reference intervals for this test in the [facility] Test Directory ([email or web address]). Performed by [facility], [address] [place] [address] [email or web address], Ryder Chow MD - Lab. Director Specimen Serum Performing Organization Address [facility] Phone Number [facility] [address] [place] [phone] * AST (SGOT) (02/22/2018 4:00 AM CDT) AST 20 10 - 50 U/L [facility] DEPARTMENT OF PATHOLOGY AND GENOMIC MEDICINE Specimen Plasma specimen Performing Organization Address City/[facility] [place] [address] PATHOLOGY AND GENOMIC MEDICINE * Thyroid stimulating hormone (02/22/2018 4:00 AM CDT) Only the most recent of 2 results within the time period is included. TSH 2.55 0.27 - 4.20 uIU/mL [facility] DEPARTMENT OF PATHOLOGY AND GENOMIC MEDICINE Specimen Plasma specimen Performing Organization Address City/[facility] [place] [address] PATHOLOGY AND GENOMIC MEDICINE * T4, free (02/22/2018 4:00 AM CDT) T4, free 1.1 0.9 - 1.7 ng/dL [facility] DEPARTMENT OF PATHOLOGY AND GENOMIC MEDICINE Specimen Plasma specimen Performing Organization Address City/[facility] [place] [address] PATHOLOGY AND GENOMIC MEDICINE * Hemoglobin A1c (02/22/2018 4:00 AM CDT) Only the most recent of 3 results within the time period is included. Hemoglobin A1C 8.9 (H) 4.0 - 5.6 % [facility] DEPARTMENT OF Comment: PATHOLOGY AND HbA1c cutoffs for diagnosing [facility] diabetes: 4.0% - 5.6%=normal 5.7% - 6.4%=increased risk for diabetes (prediabetes) >=6.5%=diabetes Goals for glycemic control (ADA 2016) < 7.0%Target for non adults with diabetes. More or less stringent targets may be appropriate for individual patients. <7.5% Target for Children and adolescents with type 1 diabetes. Specimen Blood Performing Organization Address [facility] Centercode Phone Number [facility] [place] [address] PATHOLOGY AND GENOMIC MEDICINE * Lipid panel (02/22/2018 4:00 AM CDT) Only the most recent of 2 results within the time period is included. Cholesterol 204 (H) <200 mg/dL [facility] DEPARTMENT OF PATHOLOGY AND GENOMIC MEDICINE Triglycerides 240 (H) <150 mg/dL [facility] DEPARTMENT OF PATHOLOGY AND GENOMIC MEDICINE HDL cholesterol 34 (L) >40 mg/dL [facility] DEPARTMENT OF PATHOLOGY AND GENOMIC MEDICINE LDL cholesterol 140 (H)Comment: Result <100 mg/dL [facility] DEPARTMENT OF obtained by direct LDL PATHOLOGY AND measurement GENOMIC MEDICINE Lipid panel [facility] DEPARTMENT OF interpretation Comment: PATHOLOGY AND Total [...] mg/dL) Specimen Plasma specimen Performing Organization Address [facility] Centerconc Phone Number [facility] DEPARTMENT OF [address] [place] [address] PATHOLOGY AND GENOMIC MEDICINE * XR Chest 1 Vw Portable (02/21/2018 11:38 PM CDT) Narrative Performed At Examination: XR CHEST 1 VW PORTABLE [facility] Clinical history: Chest Pain Comparison: August 11, 2017 Impression: 1. The cardiac silhouette is mildly enlarged, though vasculature is within normal limits. 2. There is no confluent infiltrate or effusion. 3. There is no acute osseous pathology. [facility]-[id number] Procedure Note Interface, Radiology Results Incoming - 02/21/2018 11:44 PM CDT Examination: XR CHEST 1 VW PORTABLE Clinical history: Chest Pain Comparison: August 11, 2017 Impression: 1. The cardiac silhouette is mildly enlarged, though vasculature is within normal limits. 2. There is no confluent infiltrate or effusion. 3. There is no acute osseous pathology. [id number] Performing Organization Address [facility] Centercode Phone Number [facility] [address] [place] [address] * Homocystine, plasma (02/21/2018 10:42 PM CDT) Homocysteine 12.4 0.0 - 15.0 umol/L [facility] DEPARTMENT OF Comment: PATHOLOGY AND The risk for coronary vascular GENOMIC MEDICINE disease increases progressively with homocysteine concentration.A 3.4 times greater risk is associated with a homocysteine concentration of greater than 15.8 umol/L as compared to a concentration below 14.1 umol/L. Specimen Plasma specimen Performing Organization Address City/[facility] Centercode Phone Number [facility] [place] [address] PATHOLOGY AND GENOMIC MEDICINE * Sedimentation rate (02/21/2018 10:42 PM CDT) Sedimentation rate 7 0 - 10 mm/hr [facility] DEPARTMENT OF PATHOLOGY AND GENOMIC MEDICINE Specimen Blood Performing Organization Address [facility] [place] [address] PATHOLOGY AND GENOMIC MEDICINE * C-reactive protein (02/21/2018 10:42 PM CDT) CRP <0.30 0.00 - 0.50 mg/dL [facility] DEPARTMENT OF PATHOLOGY AND GENOMIC MEDICINE Specimen Plasma specimen Performing Organization Address [facility] Centerconc Phone Number [facility] [address] PATHOLOGY AND [employer] MEDICINE * CTA Head W Wo Contrast (02/21/2018 10:39 PM CDT) Narrative Performed At EXAMINATION:CT ANGIOGRAM HEAD W WO CONTRAST [facility] CLINICAL HISTORY:dizziness COMPARISON:Head CT on 02/21/2018. TECHNIQUE: Head CTA with multiplanar MIP and volumetric rendering after bolus intravenous iodinated contrast administration performed using radiation dose reduction techniques.Technical factors are evaluated and adjusted to ensure appropriate moderation of exposure.Automated dose management technology is applied to adjust radiation exposure while achieving a diagnostic quality image. FINDINGS: The anterior circulation is dominant with bilateral -type grocery caddy with origins from prominent posterior communicating arteries. [...] evidence of cerebral aneurysm in the proximal [place]. There is no evidence of perfusion-weighted defect on CTA source images. IMPRESSION: 1. Normal variant [place] anatomy as described. 2. No significant stenosis or occlusion in the proximal [place]. 3. No evidence of perfusion-weighted defect on CTA source images. [facility]-[id number] Procedure Note Hm Interface, Radiology Results Incoming - 02/21/2018 10:48 [...] anterior circulation is dominant with bilateral -type grocery caddy with origins from prominent posterior communicating arteries. [...] evidence of cerebral aneurysm in the proximal [place]. There is no evidence of perfusion-weighted defect on CTA source images. IMPRESSION: 1. Normal variant [place] anatomy as described. 2. No significant stenosis or occlusion in the proximal [place]. 3. No evidence of perfusion-weighted defect on CTA source images. [facility]-[id number] Performing Organization Address City/State/Zipcode Phone Number [facility] [address] [place] [address] * CTA Neck W Wo Contrast (02/21/2018 10:38 PM CDT) Narrative Performed At EXAMINATION:CT ANGIOGRAM NECK W WO CONTRAST [facility] CLINICAL HISTORY:dizziness COMPARISON:Concurrent head CTA on 02/21/2018 [...] stenosis. 2. No significant vertebral artery stenosis. [facility]-[id number] Procedure Note [facility], Radiology Results - 02/21/2018 10:56 PM CDT EXAMINATION: CT [...] stenosis. 2. No significant vertebral artery stenosis. [facility]-[id number] Performing Organization Address City/State/Zipcode Phone Number [facility] [address] [place] [address] * Urinalysis screen and microscopy, with reflex to culture (02/21/2018 10:38 PM CDT) Specimen site Clean catch [facility] DEPARTMENT OF PATHOLOGY AND GENOMIC MEDICINE Color, UA Straw [facility] DEPARTMENT OF PATHOLOGY AND GENOMIC MEDICINE Appearance, UA Clear [facility] DEPARTMENT OF PATHOLOGY AND GENOMIC MEDICINE Specific gravity, UA 1.019 1.001 - 1.[address] [facility] DEPARTMENT OF PATHOLOGY AND GENOMIC MEDICINE pH, UA 6.0 5.0 - 8.[address] [facility] DEPARTMENT OF PATHOLOGY AND GENOMIC MEDICINE Protein, UA Negative Negative [facility] DEPARTMENT OF PATHOLOGY AND GENOMIC MEDICINE Glucose, UA Negative Negative [facility] DEPARTMENT OF PATHOLOGY AND GENOMIC MEDICINE Ketones, UA Negative Negative [facility] DEPARTMENT OF PATHOLOGY AND GENOMIC MEDICINE Bilirubin, UA Negative Negative [facility] DEPARTMENT OF PATHOLOGY AND GENOMIC MEDICINE Blood, UA Negative Negative [facility] DEPARTMENT OF PATHOLOGY AND GENOMIC MEDICINE Nitrite, UA Negative Negative [facility] DEPARTMENT OF PATHOLOGY AND GENOMIC MEDICINE Urobilinogen, UA <2.0 <2.[address] [facility] DEPARTMENT OF PATHOLOGY AND GENOMIC MEDICINE Leukocyte esterase, UA Negative Negative [facility] DEPARTMENT OF PATHOLOGY AND GENOMIC MEDICINE WBC, UA 1 0 - 1 /HPF [facility] DEPARTMENT OF PATHOLOGY AND GENOMIC MEDICINE RBC, UA <1 0 - 5 /HPF [facility] DEPARTMENT OF PATHOLOGY AND GENOMIC MEDICINE Bacteria, UA None seen None seen [facility] DEPARTMENT OF PATHOLOGY AND GENOMIC MEDICINE Yeast, UA None seen [facility] DEPARTMENT OF PATHOLOGY AND GENOMIC MEDICINE Yeast with pseudohyphae, None seen [facility] DEPARTMENT OF UA PATHOLOGY AND GENOMIC MEDICINE Specimen Urine Performing Organization Address City/State/[facility] Phone Number [facility] DEPARTMENT OF [address] [place] [address] PATHOLOGY AND GENOMIC MEDICINE * Urine drugs of abuse screen (02/21/2018 10:38 PM CDT) Amphetamine screen, urine Negative [facility] DEPARTMENT OF PATHOLOGY AND GENOMIC MEDICINE Barbiturate screen, urine Negative [facility] DEPARTMENT OF PATHOLOGY AND GENOMIC MEDICINE Benzodiazepine screen, Negative [facility] DEPARTMENT OF urine PATHOLOGY AND GENOMIC MEDICINE Cannabinoid screen, urine Negative [facility] DEPARTMENT OF PATHOLOGY AND GENOMIC MEDICINE Cocaine screen, urine Negative [facility] DEPARTMENT OF PATHOLOGY AND GENOMIC MEDICINE Methadone metabolite Negative [facility] DEPARTMENT OF (EDDP), urine PATHOLOGY AND GENOMIC MEDICINE Opiates screen, urine Negative [facility] DEPARTMENT OF PATHOLOGY AND GENOMIC MEDICINE Oxycodone screen, urine Negative [facility] DEPARTMENT OF PATHOLOGY AND GENOMIC MEDICINE Phencyclidine screen, Negative [facility] DEPARTMENT OF urine PATHOLOGY AND GENOMIC MEDICINE Tricyclic screen, urine Negative [facility] DEPARTMENT OF Comment: PATHOLOGY AND Drug [...] purposes only. Specimen Urine Performing Organization Address City/[facility] Cent[facility]ode Phone Number [facility] [address] [place] [address] PATHOLOGY AND [facility] * ECG 12 lead (02/21/2018 10:37 PM CDT) Ventricular rate 99 [facility] MUSE Atrial rate [address] [facility] MUSE QRSD interval [address] [facility] MUSE QT interval [address] [facility] MUSE QTC interval [address] [facility] MUSE P axis [address] [facility] MUSE QRS axis 1 -[address] [facility] MUSE T wave axis [address] [facility] MUSE EKG impression Sinus rhythm with 1st degree [facility] MUSE AV block with fusion complexes and premature atrial complexes-Left axis deviation-Left bundle branch block-Abnormal ECG-In automated comparison with ECG of 12-MAY-2017 10:57,-fusion complexes are now present-premature ventricular complexes are no longer present-premature atrial complexes are now present-AK interval has decreased- Performing Organization Address [facility]conc Phone Number [address] [address] * Urine culture (02/21/2018 10:36 PM CDT) Urine culture SEE COMMENTComment: [facility] DEPARTMENT OF Bacteriuria screen negative. PATHOLOGY AND GENOMIC MEDICINE Performing Organization Address [facility] Centercode Phone Number [facility] OF [address] [place] [address] PATHOLOGY AND [facility] * CT Head Wo Contrast (02/21/2018 10:11 PM CDT) Narrative Performed At EXAMINATION:CT HEAD WO CONTRAST [facility] [facility] CLINICAL HISTORY:numbness COMPARISON:Head CT on 05/14/2017. [...] and he verbalized understanding of the report. [facility]-[id number] Procedure Note Interface, Radiology Results Incoming - [...] and he verbalized understanding of the report. [facility]-[id number] Performing Organization Address City/State/Zipcode Phone Number ANJALI [address] [place] [address] * Troponin (02/21/2018 10:09 PM CDT) Troponin <0.30 0.00 - 0.30 ng/mL [facility] DEPARTMENT OF Comment: PATHOLOGY AND 0.30 - 1.49 GENOMIC MEDICINE ng/mlMay indicate increased risk of acute coronary syndrome. >=1.5 ng/ml Consistent with acute myocardial infarction. The diagnostic value of a single normal or non-diagnostic result is questionable.Serial samples at 2-6 hour intervals are required to rule out acute myocardial injury. Specimen Plasma specimen Performing Organization Address [facility] [place] [address] PATHOLOGY AND [employer] MEDICINE * Partial thromboplastin time, activated (02/21/2018 10:09 PM CDT) PTT 35.1 23.0 - 36.[address] [facility] DEPARTMENT OF Comment: PATHOLOGY AND PTT therapeutic range for [facility] unfractionated heparin is 61.0-112.0 seconds which corresponds to Anti-Xa 0.3-0.7 U/ml. Specimen Blood Performing Organization Address [facility] [place] [address] PATHOLOGY AND [employer] [facility]ICINE * Prothrombin time with INR (02/21/2018 10:09 PM CDT) Prothrombin time 13.8 12.0 - 15.[address] [facility] DEPARTMENT OF PATHOLOGY AND GENOMIC MEDICINE INR 1.[address] [facility] DEPARTMENT OF Comment: PATHOLOGY AND The International Normalized [facility] Ratio (INR) is a therapeutic monitoring tool for patients who are stable on oral anticoagulant therapy. An INR of 2.0-3.0 is suggested for deep vein thrombosis/pulmonary embolism. Specimen Blood Performing Organization Address [facility] [place] [address] PATHOLOGY AND [employer] [facility]ICINE * B natriuretic peptide (02/21/2018 10:09 PM CDT) Only the most recent of 2 results within the time period is included. BNP 186 (H) 0 - 100 pg/mL [facility] DEPARTMENT OF PATHOLOGY AND GENOMIC MEDICINE Specimen Blood Performing Organization Address [facility] Cent[facility] Phone Number [facility] [place] [address] PATHOLOGY AND [employer] [facility]INE * Comprehensive metabolic panel (02/21/2018 10:09 PM CDT) Sodium 135 135 - 148 mEq/L [facility] DEPARTMENT OF PATHOLOGY AND [employer] [facility]ICINE Potassium SEE COMMENT 3.5 - 5.0 mEq/L [facility] DEPARTMENT OF Comment: PATHOLOGY AND Footnote--------- GENOMIC MEDICINE Unable to perform testing, specimen is HEMOLYZED.Recollect requested for K AST (tests). [place] ____ (tech ID) [email or web address] ____ (date/time).Credit issued. Chloride 97 (L) 98 - 112 mEq/L [facility] DEPARTMENT OF PATHOLOGY AND GENOMIC MEDICINE CO2 21 (L) 24 - 31 mEq/L [facility] DEPARTMENT OF PATHOLOGY AND GENOMIC MEDICINE Anion gap 17@ANIO (H) 7 - 15 mEq/L [facility] DEPARTMENT OF PATHOLOGY AND GENOMIC MEDICINE BUN 18 8 - 23 mg/dL [facility] DEPARTMENT OF PATHOLOGY AND GENOMIC MEDICINE Creatinine 0.9 0.7 - 1.2 mg/dL [facility] DEPARTMENT OF PATHOLOGY AND GENOMIC MEDICINE Glucose 155 (H) 65 - 99 mg/dL [facility] DEPARTMENT OF PATHOLOGY AND GENOMIC MEDICINE Calcium 9.4 8.8 - 10.2 mg/dL [facility] DEPARTMENT OF PATHOLOGY AND GENOMIC MEDICINE Protein 7.3 6.3 - 8.3 g/dL [facility] DEPARTMENT OF Comment: PATHOLOGY AND GENOMIC MEDICINE 4.6-7.0 g/dL 1 week 4.4-7.6 g/dL 7 months-1year 5.1-7.3 g/dL 1-2 years5.6-7 .5 g/dL >3 years6.0-8 .0 g/dL 18-150 6.3-8.3 g/dL Albumin 3.7 3.5 - 5.0 g/dL [facility] DEPARTMENT OF PATHOLOGY AND GENOMIC MEDICINE A/G ratio 1.0 0.7 - 3.[address] [facility] DEPARTMENT OF PATHOLOGY AND GENOMIC MEDICINE Alkaline phosphatase 50 40 - 129 U/L [facility] DEPARTMENT OF PATHOLOGY AND GENOMIC MEDICINE AST SEE COMMENTComment: 10 - 50 U/L [facility] DEPARTMENT OF Footnote--------- PATHOLOGY AND GENOMIC MEDICINE ALT 30 5 - 50 U/L [facility] DEPARTMENT OF PATHOLOGY AND GENOMIC MEDICINE Total bilirubin 0.5 0.0 - 1.2 mg/dL [facility] DEPARTMENT OF PATHOLOGY AND GENOMIC MEDICINE Specimen Plasma specimen Performing Organization Address City/State/Zipcode Phone Number [facility] DEPARTMENT OF [address] [place] [address] PATHOLOGY AND GENOMIC MEDICINE * CBC hemogram (12/17/2017 10:50 AM CDT) WBC 8.95 4.50 - 11.00 k/uL [facility] DEPARTMENT OF PATHOLOGY AND GENOMIC MEDICINE RBC 5.15 4.40 - 6.00 m/uL [facility] DEPARTMENT OF PATHOLOGY AND GENOMIC MEDICINE HGB 16.5 14.0 - 18.0 g/dL [facility] DEPARTMENT OF PATHOLOGY AND GENOMIC MEDICINE HCT 47.0 41.0 - 51.0 % [facility] DEPARTMENT OF PATHOLOGY AND GENOMIC MEDICINE MCV 91.3 82.0 - 100.[address] [facility] DEPARTMENT OF PATHOLOGY AND GENOMIC MEDICINE MCH 32.0 27.0 - 34.[address] [facility] DEPARTMENT OF PATHOLOGY AND GENOMIC MEDICINE MCHC 35.1 31.0 - 37.0 g/dL [facility] DEPARTMENT OF PATHOLOGY AND GENOMIC MEDICINE RDW - SD 41.9 37.0 - 55.[address] [facility] DEPARTMENT OF PATHOLOGY AND GENOMIC MEDICINE MPV 10.0 8.8 - 13.[address] [facility] DEPARTMENT OF PATHOLOGY AND GENOMIC MEDICINE Platelet count 196 150 - 400 k/uL [facility] DEPARTMENT OF PATHOLOGY AND GENOMIC MEDICINE Nucleated RBC 0.00 /[address] [facility] DEPARTMENT OF PATHOLOGY AND GENOMIC MEDICINE Specimen Blood Performing Organization Address [facility] Phone Number [facility] DEPARTMENT OF [address] [place] [phone] PATHOLOGY AND GENOMIC MEDICINE * XR Ankle 3 Vw Bilateral (12/14/2017 1:54 PM CDT) Narrative Performed At EXAMINATION:XR ANKLE 3 VW BILATERAL HM [facility] CLINICAL HISTORY:M79.609 Pain in unspecified limb, m79.609 COMPARISON:None. IMPRESSION: 1.There is mild soft tissue swelling about the bilateral ankles at the lateral aspects. Superior and inferior patellar osteophytes are seen. No fracture or dislocation is identified. No erosions are seen. [facility]-[id number] Procedure Note Hm Interface, Radiology Results Incoming - 12/14/2017 2:36 PM CDT EXAMINATION: XR ANKLE 3 VW BILATERAL CLINICAL HISTORY: M79.609 Pain in unspecified limb, m79.609 COMPARISON: None. IMPRESSION: 1. There is mild soft tissue swelling about the bilateral ankles at the lateral aspects. Superior and inferior patellar osteophytes are seen. No fracture or dislocation is identified. No erosions are seen. [facility]-[id number] Performing Organization Address [facility] Cent[facility] Phone Number [facility] [address] [place] [address] * XR Foot 3 Vw Bilateral (12/14/2017 1:54 PM CDT) Narrative Performed At EXAMINATION:XR FOOT 3 VW BILATERAL HM [facility] CLINICAL HISTORY:M79.609 Pain in unspecified limb, [...] bilaterally. No fracture or dislocation is seen. [facility]-[id number] Procedure Note Hm Interface, Radiology Results - [...] bilaterally. No fracture or dislocation is seen. [facility]-[id number] Performing Organization Address City/State/Zipcode Phone Number [facility] [address] [place] [address] after 10/29/2017 Insurance Payer Benefit Subscriber ID Type Phone Address Plan / Group MEDICARE MEDICARE xxxxxxxxxx Medicare [place], [place] PART A AND B COMMERCIAL MISC MISC xxxxxxxxxxxx Commercial COMMERCIAL Advance Directives Patient has advance care planning documents on file. For more information, tejinder german contact: Omid Smith [address] [place] [address]
--- OUTSIDE RECORDS SUMMARY | 2018-10-30 08:32 | XMS REPORT ---
Author Author Admin, [place] Organization [facility] Address [address] [address] Phone Allergies, Adverse Reactions, Alerts Allergy Name Reaction Description Start Date Severity Status Provider Allergies Unknown Conditions or Problems Problem Name Problem Code Onset Date Status Entry Date Provider Comment Standard Description Annotate ADJUSTMENT DISORDER, W/ MIXED ANXIETY AND DEPRESSED MOOD Active Caroline Celaya PhD Adjustment disorder with mixed disturbance of emotions and conduct Memory impairment 780.9 Active Caroline Celaya PhD Other general symptoms Medication List Medication Instructions Start Date Stop Date Generic Name NDC Status Provider Patient Instruction Drug Treatment Unknown - unknown Procedures Code Procedure Name Date Entry Date Standard Description CPT-53512 Psychotherapy 45 (38-52*) min - 76863 (with patient and/or family member) 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
--- OUTSIDE RECORDS SUMMARY | 2018-10-30 08:32 | XMS REPORT ---
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
--- OUTSIDE RECORDS SUMMARY | 2018-10-30 08:32 | XMS REPORT | Continuity of Care Document ---
Author Author [facility] Address Unknown Phone Unavailable Problems Problem Status Onset Date Classification Date Reported Comments Source ADJUSTMENT DISORDER, W/ MIXED ANXIETY AND DEPRESSED MOOD Active 09/09/2018 Diagnosis 10/04/2018 [facility] Memory impairment Active 09/09/2018 Diagnosis 10/04/2018 [facility] Bradycardia Active Problem 09/20/2018 [facility] Pneumonia Active Problem 09/20/2018 [facility] Medications Medication Details Route Status Patient Instructions Ordering Provider Order Date Source Diovan , 80 Mg Oral Daily Active 09/17/2018 [facility] Humalog Insulin Pump , 3.4 Units Subcutaneously Every 1 Hour Active 09/17/2018 [facility] Hydrocodone Bit/Acetaminophen* (Vicodin 5-500 Tablet*) 1 Each Tablet, 5 Mg Oral As Needed Active 09/17/2018 [facility] Ubidecarenone (Co Q-10) 100 Mg Capsule, Mg Oral Daily Active 09/17/2018 [facility] Humalog , Active 07/16/2013 [facility] Drug Treatment Unknown - unknown Active [facility] Aspirin Daily Active [facility] Clopidogrel Bisulfate (Clopidogrel) 75 Mg Tablet Daily Active [facility] Fish Oil Daily Active [facility] Gabapentin 300 Mg Capsule Bedtime Active [facility] Insuln Asp Prt/Insulin Aspart (Novolog Mix 70-30 Flexpen Syrn) 100 Unit/1 Ml Insuln.pen Every Morning Active [facility] Levothyroxine Sodium 25 Mcg Tablet Bedtime Active [facility] Magnesium Oxide 400 Mg Tablet Daily Active [facility] Metoprolol Tartrate (Lopressor) 25 Mg Tab Daily Active [facility] Allergies, Adverse Reactions, Alerts Substance Category Reaction Severity Reaction type Status Date Reported Comments Source Allergies Unknown propensity to adverse reactions [facility] Immunizations Immunization Date Given Site Status Last Updated Comments Source Results Order Name Results Value Reference Range Date Interpretation Comments Source Capillary blood glucose measurement by glucometer (mass/volume) 192 70 - 120 09/19/2018 [facility] Blood leukocytes automated count (number/volume) 9.20 4.8 - 10.8 09/19/2018 [facility] Blood erythrocytes automated count (number/volume) 4.93 4.3 - 5.7 09/19/2018 [facility] Blood hemoglobin measurement (moles/volume) 15.8 14.0 - 18.0 09/19/2018 [facility] Automated blood hematocrit (volume fraction) 45.0 38.2 - 49.6 09/19/2018 [facility] Automated erythrocyte mean corpuscular volume 91.3 81 - 99 09/19/2018 [facility] Automated erythrocyte mean corpuscular hemoglobin (mass per erythrocyte) 32.0 28 - 32 09/19/2018 [facility] Automated erythrocyte mean corpuscular hemoglobin concentration measurement (mass/volume) 35.1 31 - 35 09/19/2018 [facility] RDW BldCo-Rto 13.7 11.7 - 14.4 09/19/2018 [facility] Automated blood platelet count (count/volume) 195 140 - 360 09/19/2018 [facility] Automated blood segmented neutrophil count as percentage of total leukocytes 53.3 38.7 - 80.0 09/19/2018 [facility] Automated blood lymphocyte count as percentage ot total leukocytes 34.3 18.0 - 39.1 09/19/2018 [facility] Automated blood monocyte count as percentage of total leukocytes 7.9 4.4 - 11.3 09/19/2018 [facility] Automated blood eosinophil count as percentage of total leukocytes 3.8 0.0 - 6.0 09/19/2018 [facility] Automated blood basophil count as percentage of total leukocytes 0.4 0.0 - 1.0 09/19/2018 [facility] IM GRANULOCYTES % 0.3 0.0 - 1.0 09/19/2018 [facility] Automated blood neutrophil count 4.9 2.1 - 6.9 09/19/2018 [facility] Blood lymphocytes count (number/volume) 3.2 1.0 - 3.2 09/19/2018 [facility] Blood monocytes automated count (number/volume) 0.7 0.2 - 0.8 09/19/2018 [facility] Automated blood eosinophil count 0.4 0.0 - 0.4 09/19/2018 [facility] Automated blood basophil count (count/volume) 0.0 0.0 - 0.1 09/19/2018 [facility] Absolute Immature Granulocyte (auto 0.03 0 - 0.1 09/19/2018 [facility] Serum or plasma sodium measurement (moles/volume) 139 136 - 145 09/19/2018 [facility] Serum or plasma potassium measurement (moles/volume) 4.0 3.5 - 5.1 09/19/2018 [facility] Serum or plasma chloride measurement (moles/volume) 105 98 - 107 09/19/2018 [facility] Serum or plasma carbon dioxide, total measurement (moles/volume) 24 22 - 29 09/19/2018 [facility] Serum or plasma anion gap 14.0 8 - 16 09/19/2018 [facility] Serum or plasma urea nitrogen measurement (mass/volume) 21 7 - 26 09/19/2018 [facility] Serum or plasma creatinine measurement (mass/volume) 0.86 0.72 - 1.25 09/19/2018 [facility] Serum or plasma urea nitrogen/creatinine mass ratio 24 6 - 25 09/19/2018 [facility] Estimated glomerular filtration rate (GFR) determination > 60 60 09/19/2018 [facility] Glucose measurement 148 74 - 118 09/19/2018 [facility] Serum or plasma calcium measurement (mass/volume) 9.9 8.4 - 10.2 09/19/2018 [facility] Serum or plasma magnesium measurement (mass/volume) 2.0 1.3 - 2.1 09/19/2018 [facility] Serum or plasma total bilirubin measurement (mass/volume) 0.6 0.2 - 1.2 09/18/2018 [facility] Aspartate Amino Transf (AST/SGOT) 13 5 - 34 09/18/2018 [facility] Serum or plasma alanine aminotransferase measurement (enzymatic activity/volume) 14 0 - 55 09/18/2018 [facility] Serum or plasma protein measurement (mass/volume) 6.2 6.5 - 8.1 09/18/2018 [facility] Serum or plasma albumin measurement (mass/volume) 3.3 3.5 - 5.0 09/18/2018 [facility] Plasma globulin measurement (mass/volume) 2.9 2.3 - 3.5 09/18/2018 [facility] Serum or plasma albumin/globulin mass ratio 1.1 0.8 - 2.0 09/18/2018 [facility] Serum or plasma alkaline phosphatase measurement (enzymatic activity/volume) 48 40 - 150 09/18/2018 [facility] Serum or plasma creatine kinase measurement (enzymatic activity/volume) 440 30 - 200 09/18/2018 [facility] Serum or plasma creatine kinase MB measurement (mass/volume) 1.50 0 - 5.0 09/18/2018 [facility] Troponin I measurement by highly sensitive enzyme immunoassay 0.030 0 - 0.300 09/18/2018 [facility] Lactic Acid Level 9.6 4.5 - 19.8 09/17/2018 [facility] Blood culture NO GROWTH AFTER 48 HOURS 09/17/2018 [facility] Prothrombin time (PT) in platelet poor plasma by coagulation assay 12.8 11.9 - 14.5 09/17/2018 [facility] INR in Platelet poor plasma by Coagulation assay 0.88 09/17/2018 [facility] Activated partial thromboplastin time (aPTT) in platelet poor plasma bycoagulation assay 32.6 23.8 - 35.5 09/17/2018 [facility] BNP Bld-mCnc 194.4 0 - 100 09/17/2018 [facility] Serum or plasma thyrotropin measurement by detection limit <=0.005 miu/l (units/volume) 1.721 0.350 - 4.940 09/17/2018 [facility] Urine color determination YELLOW YELLOW 09/17/2018 [facility] Urine clarity CLEAR CLEAR 09/17/2018 [facility] Specific gravity of Urine by Test strip 1.020 1.010 - 1.025 09/17/2018 [facility] Urine pH measurement by automated test strip 6 5 - 7 09/17/2018 [facility] Urine leukocyte esterase detection by dipstick NEGATIVE NEGATIVE 09/17/2018 [facility] Urine nitrite detection NEGATIVE NEGATIVE 09/17/2018 [facility] Urine protein measurement by test strip (mass/volume) NEGATIVE NEGATIVE 09/17/2018 [facility] Urine glucose detection NEGATIVE NEGATIVE 09/17/2018 [facility] Urine ketones detection by automated test strip NEGATIVE NEGATIVE 09/17/2018 [facility] Urine urobilinogen measurement by test strip (mass/volume) 0.2 0.2 - 1 09/17/2018 [facility] Urine total bilirubin measurement (mass/volume) NEGATIVE NEGATIVE 09/17/2018 [facility] Urine erythrocytes detection NEGATIVE NEGATIVE 09/17/2018 [facility] Automated urine sediment leukocyte count by microscopy (number/high power field) NONE 0 - 5 09/17/2018 [facility] Erythrocytes detection in urine sediment by light microscopy NONE 0 - 5 09/17/2018 [facility] Bacteria detection in urine sediment by light microscopy NONE NONE 09/17/2018 [facility] Epithelial cells detection in urine sediment by light microscopy RARE NONE 09/17/2018 [facility] Spermatozoa detection in urine sediment by light microscopy PRESENT NONE 09/17/2018 [facility] Vital Signs Vital Sign Value Date Comments Source Encounters Location Location Details Encounter Type Encounter Number Reason For Visit Attending Provider ADM Date DC Date Status Source Registered Clinic [id number] CHELLY LIN MD 01/08/2018 [facility] Registered Clinic [id number] GEOFFREY ESQUEDA MD 09/05/2018 [facility] Discharged Inpatient [id number] GEOFFREY ESQUEDA MD 09/17/2018 09/19/2018 [facility] Procedures Procedure Code Date Perfomer Comments Source Psychotherapy 45 (38-52*) min - 10238 (with patient and/or family member) 52851 09/24/2018 Belia PhD [facility] X-ray of chest, two views [id number] 09/17/2018 [facility] Computed tomography of chest with contrast [id number] 09/17/2018 [facility] Diagnostic evaluation (no medical) - [id number] 09/10/2018 Belia PhD [facility] Computed tomography of chest without contrast [id number] 01/08/2018 [facility]
[2018-10-30 09:24] LABS: BASOPHILS # (AUTO) 0.1 (0.0-0.1); BASOPHILS % 0.6 % (0.0-1.0); EOSINOPHILS # (AUTO) 0.3 (0.0-0.4); EOSINOPHILS % 2.9 % (0.0-6.0); HEMATOCRIT 45.9 % (38.2-49.6); HEMOGLOBIN 16.2 g/dL (14.0-18.0); LYMPHOCYTES # (AUTO) 2.7 (1.0-3.2); LYMPHOCYTES % 27.1 % (18.0-39.1); MEAN CORPUSCULAR HEMOGLOBIN 32.4 pg (28-32); MEAN CORPUSCULAR HGB CONC 35.3 g/dL (31-35); MEAN CORPUSCULAR VOLUME 91.8 fL (81-99); MONOCYTES # (AUTO) 0.9 (0.2-0.8); MONOCYTES % 8.8 % (4.4-11.3); NEUTROPHILS % 60.3 % (38.7-80.0); PLATELET COUNT 190 x10e3/uL (140-360); RED CELL DISTRIBUTION WIDTH 13.3 % (11.7-14.4)
[2018-10-30 09:33] LABS: INR 0.89; PROTHROMBIN TIME 12.5 seconds (11.9-14.5)
[2018-10-30 09:34] LABS: PARTIAL THROMBOPLASTIN TIME 40.5 seconds (23.8-35.5)
[2018-10-30 09:39] LABS: ALANINE AMINOTRANSFERASE 11 IU/L (0-55); ALBUMIN 3.5 g/dL (3.5-5.0); ALBUMIN/GLOBULIN RATIO 0.8 (0.8-2.0); ALKALINE PHOSPHATASE 54 IU/L (40-150); BLOOD UREA NITROGEN 18 mg/dL (7-26); BUN/CREATININE RATIO 21 (6-25); CALCIUM 10.1 mg/dL (8.4-10.2); CARBON DIOXIDE 23 mmol/L (22-29); CHLORIDE 104 mmol/L (98-107); CREATINE KINASE 459 IU/L (30-200); CREATININE, SERUM 0.87 mg/dL (0.72-1.25); EST GLOMERULAR FILTRATION RATE > 60 ML/MIN (60-); GLUCOSE 170 mg/dL (74-118); SODIUM 136 mmol/L (136-145)
--- NOTE | 2018-10-30 09:47 | Diagnostic Imaging Report ---
EXAMINATION: CHEST 2 VIEWS INDICATION: Shortness of breath COMPARISON: Chest CT 09/17/2018 , Chest radiograph 09/19/2018. FINDINGS: TUBES and LINES: None. LUNGS: Lungs are well inflated. Chronic appearing interstitial changes. Linear subsegmental atelectasis in the right midlung. There is no evidence of pneumonia or pulmonary edema. PLEURA: No pleural effusion or pneumothorax. HEART AND MEDIASTINUM: The cardiomediastinal silhouette is unremarkable. BONES AND SOFT TISSUES: No acute osseous lesion. Partially seen lower cervical fusion hardware. UPPER ABDOMEN: No free air under the diaphragm. IMPRESSION: No acute radiographic abnormality. Signed by: Dr. Simba Hernandez MD on 10/30/2018 9:44 AM
[2018-10-30 10:06] LABS: CLARITY,URINE CLEAR (CLEAR); COLOR,URINE YELLOW (YELLOW)
[2018-10-30 10:07] LABS: BILIRUBIN,URINE NEGATIVE (NEGATIVE); EPITHELIAL CELLS,URINE RARE /LPF; KETONES,URINE NEGATIVE (NEGATIVE); LEUKOCYTE ESTERASE ,URINE NEGATIVE (NEGATIVE); NITRITE,URINE NEGATIVE (NEGATIVE); PROTEIN,URINE DIPSTICK NEGATIVE (NEGATIVE); URINE UROBILINOGEN 0.2 mg/dL (0.2 - 1)
[2018-10-30 11:14] VITALS: BP 123/86
== END 2018-10-30 11:31 | disposition home or self-care (01) ==
LOC: ER 08:28
DX: R06.02 Shortness of breath (principal); I48.2 Chronic atrial fibrillation; R73.9 Hyperglycemia, unspecified; I10 Essential (primary) hypertension; I51.9 Heart disease, unspecified
CPT/HCPCS: 36415; 71046; 80053; 81001; 82550; 82553; 83605; 83880; 84484; 85025; 85610; 85730; 87040; 87400; 93005; 99283

== ENCOUNTER → 2021-03-15 | Outpatient (CLI) | payer MEDICARE, OTHER | LOC: NM 08:19 | PROVIDERS: ATTEND Family Medicine | DX: K31.84 Gastroparesis (principal) | CPT/HCPCS: 78264; A9541 ==

== ENCOUNTER 2021-08-18 15:31 | Inpatient (IN) | payer MEDICARE, OTHER ==
[~2021-08-18] VITALS: Ht 157.5 cm; Wt 109.8 kg
[2021-08-18 16:09] LABS: BASOPHILS # (AUTO) 0.1 (0.0-0.1); BASOPHILS % 0.7 % (0.0-1.0); EOSINOPHILS # (AUTO) 0.5 (0.0-0.4); EOSINOPHILS % 5.3 % (0.0-6.0); HEMATOCRIT 45.8 % (38.2-49.6); HEMOGLOBIN 15.7 g/dL (14.0-18.0); LYMPHOCYTES # (AUTO) 3.3 (1.0-3.2); LYMPHOCYTES % 33.5 % (18.0-39.1); MEAN CORPUSCULAR HEMOGLOBIN 31.5 pg (28-32); MEAN CORPUSCULAR HGB CONC 34.3 g/dL (31-35); MEAN CORPUSCULAR VOLUME 91.8 fL (81-99); MONOCYTES # (AUTO) 0.7 (0.2-0.8); MONOCYTES % 7.2 % (4.4-11.3); NEUTROPHILS # (AUTO) 5.2 (2.1-6.9); NEUTROPHILS % 53.2 % (38.7-80.0); PLATELET COUNT 207 x10e3/uL (140-360); RED BLOOD COUNT 4.99 x10e6/uL (4.3-5.7); RED CELL DISTRIBUTION WIDTH 13.5 % (11.7-14.4)
[2021-08-18 16:18] LABS: INR 0.98; PROTHROMBIN TIME 13.8 seconds (11.9-14.5)
[2021-08-18 16:26] LABS: ALBUMIN 3.6 g/dL (3.5-5.0); ALBUMIN/GLOBULIN RATIO 0.9 (0.8-2.0); ANION GAP 15.1 mmol/L (8-16); CALCIUM 9.5 mg/dL (8.4-10.2); CREATININE, SERUM 0.99 mg/dL (0.72-1.25); POTASSIUM 4.1 mmol/L (3.5-5.1)
[2021-08-18 16:32] LABS: CREATINE KINASE MB 1.7 ng/mL (0-5.0)
[2021-08-18] MEDS ORDERED: ASPIRIN 81 MG CHEW TAB PO ONE (17:00)
[2021-08-18 21:14] VITALS: BP 156/76
[2021-08-18 22:54] VITALS: BP 156/76
[2021-08-19] VITALS (7 sets, daily range): BP systolic 112–156; BP diastolic 59–92
[2021-08-19] MEDS ORDERED: ELIQUIS5 MG PO (00:14)
[2021-08-19] MEDS ORDERED: VITAMIN C1000 MG PO (00:14)
[2021-08-19] MEDS ORDERED: NOVOLIN N100 UNIT/1 SQ (00:16)
[2021-08-19 00:21] LABS: CREATINE KINASE MB 1.6 ng/mL (0-5.0)
[2021-08-19 04:58] LABS: BASOPHILS # (AUTO) 0.1 (0.0-0.1); BASOPHILS % 0.8 % (0.0-1.0); EOSINOPHILS # (AUTO) 0.6 (0.0-0.4); HEMATOCRIT 42.8 % (38.2-49.6); HEMOGLOBIN 14.8 g/dL (14.0-18.0); LYMPHOCYTES # (AUTO) 3.5 (1.0-3.2); LYMPHOCYTES % 36.7 % (18.0-39.1); MEAN CORPUSCULAR HEMOGLOBIN 32.2 pg (28-32); MEAN CORPUSCULAR HGB CONC 34.6 g/dL (31-35); MEAN CORPUSCULAR VOLUME 93.2 fL (81-99); MONOCYTES # (AUTO) 0.8 (0.2-0.8); MONOCYTES % 8.2 % (4.4-11.3); NEUTROPHILS # (AUTO) 4.5 (2.1-6.9); PLATELET COUNT 191 x10e3/uL (140-360); RED BLOOD COUNT 4.59 x10e6/uL (4.3-5.7); RED CELL DISTRIBUTION WIDTH 13.6 % (11.7-14.4)
[2021-08-19 05:34] LABS: ALBUMIN 3.3 g/dL (3.5-5.0); ALBUMIN/GLOBULIN RATIO 0.8 (0.8-2.0); ANION GAP 13.8 mmol/L (8-16); CALCIUM 9.4 mg/dL (8.4-10.2); CREATININE, SERUM 1.04 mg/dL (0.72-1.25); POTASSIUM 3.8 mmol/L (3.5-5.1)
[2021-08-19] MEDS: FUROSEMIDE INJ 10 MG/ML 4 ML VIAL IV SCH ×2 (08:15→09:00)
[2021-08-19] MEDS ORDERED: BETAMETHASONE DIP AUG 0.05% CRM 15 GM TUBE TOP SCH (08:15)
[2021-08-19 09:00] LABS: THYROID STIMULATING HORMONE 1.883 uIU/mL (0.350-4.940)
[2021-08-19] MEDS ORDERED: CLOPIDOGREL BISULFATE 75 MG TAB PO SCH (09:00)
[2021-08-19] MEDS ORDERED: DEXTROSE 50% SYRINGE 50 ML IV PRN (09:00)
[2021-08-19] MEDS: NPH, HUMAN INSULIN ISOPHANE 100 UNIT/1 ML 3ML VIAL SQ SCH ×2 (09:00→16:31)
[2021-08-19] MEDS: ASCORBIC ACID 500 MG TAB PO SCH ×2 (09:00→16:30)
[2021-08-19] MEDS ORDERED: ASPIRIN 325 MG TAB EC PO SCH (09:00)
[2021-08-19] MEDS ORDERED: LEVOTHYROXINE SODIUM 25 MCG TABLET PO SCH (09:00)
[2021-08-19 09:32] LABS: CREATINE KINASE MB 1.4 ng/mL (0-5.0)
[2021-08-19] MEDS: BETAMETHASONE DIP AUG 0.05% CRM 15 GM TUBE TOP SCH ×2 (11:47→16:40)
[2021-08-19] MEDS: INSULIN LISPRO 100 UNIT/1 ML 3ML VIAL SQ SCH ×2 (12:13→16:32)
[2021-08-19] MEDS ORDERED: APIXABAN 5 MG TABLET PO SCH (17:00)
[2021-08-19] MEDS ORDERED: LASIX40 MG PO (18:53)
[2021-08-19] MEDS ORDERED: LISINOPRIL2.5 MG PO (18:53)
[2021-08-19] MEDS ORDERED: BETAMETHASONE D15 GM TOP (18:54)
[2021-08-20] MEDS ORDERED: ASPIRIN 81 MG ENTERIC COATED PO SCH (09:00)
[2021-08-20] MEDS ORDERED: METOPROLOL TARTRATE 25 MG TAB PO SCH (09:00)
[2021-08-20] MEDS ORDERED: COQ-1030 MG PO (18:34)
[2021-08-20] MEDS ORDERED: ZYRTEC10 M3 PO (18:36)
[2021-08-20] MEDS ORDERED: MAGNESIUM OXID400 MG PO (18:37)
== END 2021-08-19 19:15 | disposition home or self-care (01) | DRG 291 ==
LOC: ER 15:57 → ERHOLD 17:23 → MED/SURG2 20:02
PROVIDERS: ADMIT Family Medicine; ATTEND Family Medicine
DX: I11.0 Hypertensive heart disease with heart failure (principal); I50.43 Acute on chronic combined systolic (congestive) and diastolic (congestive) heart failure; I48.20 Chronic atrial fibrillation, unspecified; I25.10 Atherosclerotic heart disease of native coronary artery without angina pectoris; Z95.810 Presence of automatic (implantable) cardiac defibrillator; Z95.5 Presence of coronary angioplasty implant and graft; I25.5 Ischemic cardiomyopathy; E78.5 Hyperlipidemia, unspecified; L40.9 Psoriasis, unspecified; E11.9 Type 2 diabetes mellitus without complications; Z20.822 Contact with and (suspected) exposure to COVID-19
CPT/HCPCS: 36415; 71045; 80053; 82550; 82553; 82948; 83036; 83880; 84436; 84443; 84480; 84484; 85025; 85610; 93005; 93306; 94799; 99284; J1940; U0002

== ENCOUNTER 2021-08-20 09:48 | Inpatient (IN) | payer MEDICARE, OTHER ==
[~2021-08-20] VITALS: Ht 179.1 cm; Wt 109.8 kg
[~2021-08-20 09:48] MED LIST changes: +BETAMETHASONE D15 GM TOP; +ELIQUIS5 MG PO; +LASIX40 MG PO; +LISINOPRIL2.5 MG PO; +NOVOLIN N100 UNIT/1 SQ; +VITAMIN C1000 MG PO
[2021-08-20 10:18] LABS: BASOPHILS # (AUTO) 0.1 (0.0-0.1); BASOPHILS % 0.7 % (0.0-1.0); EOSINOPHILS # (AUTO) 0.6 (0.0-0.4); EOSINOPHILS % 5.7 % (0.0-6.0); HEMATOCRIT 44.2 % (38.2-49.6); HEMOGLOBIN 15.4 g/dL (14.0-18.0); LYMPHOCYTES # (AUTO) 4.2 (1.0-3.2); LYMPHOCYTES % 41.9 % (18.0-39.1); MEAN CORPUSCULAR HEMOGLOBIN 32.2 pg (28-32); MEAN CORPUSCULAR HGB CONC 34.8 g/dL (31-35); MEAN CORPUSCULAR VOLUME 92.3 fL (81-99); MONOCYTES # (AUTO) 0.8 (0.2-0.8); NEUTROPHILS # (AUTO) 4.3 (2.1-6.9); NEUTROPHILS % 43.4 % (38.7-80.0); PLATELET COUNT 190 x10e3/uL (140-360); RED BLOOD COUNT 4.79 x10e6/uL (4.3-5.7); RED CELL DISTRIBUTION WIDTH 13.3 % (11.7-14.4)
[2021-08-20 10:35] LABS: ALBUMIN 3.5 g/dL (3.5-5.0); ALBUMIN/GLOBULIN RATIO 0.9 (0.8-2.0); ANION GAP 14.8 mmol/L (8-16); CALCIUM 9.3 mg/dL (8.4-10.2); CREATININE, SERUM 1.05 mg/dL (0.72-1.25); POTASSIUM 3.8 mmol/L (3.5-5.1)
[2021-08-20] MEDS: ASPIRIN 81 MG CHEW TAB PO NR ×2 (10:54→11:16)
[2021-08-20] MEDS ORDERED: CLOPIDOGREL BISULFATE 75 MG TAB PO NR (11:15)
[2021-08-20] MEDS: ENOXAPARIN SODIUM INJ 100 MG/ML SYR SC SCH (11:35)
[2021-08-20 13:00] VITALS: BP 120/98
[2021-08-20] MEDS ORDERED: COQ-1030 MG PO (18:34)
[2021-08-20] MEDS ORDERED: ZYRTEC10 M3 PO (18:36)
[2021-08-20] MEDS ORDERED: MAGNESIUM OXID400 MG PO (18:37)
[2021-08-20 20:00] VITALS: BP 122/64
[2021-08-20 21:00] VITALS: BP 122/64
[2021-08-20] MEDS: LORATADINE 10 MG TAB PO SCH (21:00)
[2021-08-20] MEDS ORDERED: MAGNESIUM OXIDE 400 MG TAB PO SCH (21:00)
[2021-08-20] MEDS: MAGNESIUM OXIDE 400 MG TAB PO SCH (21:43)
[2021-08-21] VITALS (8 sets, daily range): BP systolic 103–141; BP diastolic 47–90
[2021-08-21] MEDS: LORATADINE 10 MG TAB PO SCH ×2 (05:20→21:00)
[2021-08-21 06:16] LABS: BASOPHILS # (AUTO) 0.1 (0.0-0.1); BASOPHILS % 0.9 % (0.0-1.0); EOSINOPHILS # (AUTO) 0.5 (0.0-0.4); HEMATOCRIT 42.6 % (38.2-49.6); HEMOGLOBIN 14.8 g/dL (14.0-18.0); LYMPHOCYTES # (AUTO) 3.5 (1.0-3.2); LYMPHOCYTES % 38.5 % (18.0-39.1); MEAN CORPUSCULAR HEMOGLOBIN 31.7 pg (28-32); MEAN CORPUSCULAR HGB CONC 34.7 g/dL (31-35); MEAN CORPUSCULAR VOLUME 91.2 fL (81-99); MONOCYTES # (AUTO) 0.7 (0.2-0.8); NEUTROPHILS # (AUTO) 4.1 (2.1-6.9); NEUTROPHILS % 46.2 % (38.7-80.0); PLATELET COUNT 189 x10e3/uL (140-360); RED BLOOD COUNT 4.67 x10e6/uL (4.3-5.7); RED CELL DISTRIBUTION WIDTH 13.3 % (11.7-14.4)
[2021-08-21 06:44] LABS: ANION GAP 13.7 mmol/L (8-16); CREATININE, SERUM 1.12 mg/dL (0.72-1.25); POTASSIUM 3.7 mmol/L (3.5-5.1)
[2021-08-21] MEDS ORDERED: DEXTROSE 50% SYRINGE 50 ML IV PRN (08:00)
[2021-08-21] MEDS: ENOXAPARIN SODIUM INJ 100 MG/ML SYR SC SCH ×2 (08:57→21:33)
[2021-08-21] MEDS ORDERED: MAGNESIUM OXIDE 400 MG TAB PO SCH (09:00)
[2021-08-21] MEDS ORDERED: INSULIN GLARGINE 100 UNITS/ML VIAL SQ SCH (09:00)
[2021-08-21] MEDS ORDERED: METHYLPREDNISOLONE SOD SUCC 40 MG/ML VIAL 1ML IV NR ×2 (09:15→11:15)
[2021-08-21] MEDS: ASCORBIC ACID 500 MG TAB PO SCH ×3 (09:45→21:33)
[2021-08-21] MEDS: BETAMETHASONE DIP AUG 0.05% CRM 15 GM TUBE TOP SCH (09:45)
[2021-08-21] MEDS: CLOPIDOGREL BISULFATE 75 MG TAB PO SCH (09:45)
[2021-08-21] MEDS: LISINOPRIL 2.5 MG TAB PO SCH (09:45)
[2021-08-21] MEDS: FUROSEMIDE 40 MG TAB PO SCH (09:45)
[2021-08-21] MEDS: MAGNESIUM OXIDE 400 MG TAB PO SCH ×2 (09:45→17:16)
[2021-08-21] MEDS: LEVOTHYROXINE SODIUM 25 MCG TABLET PO SCH (09:45)
[2021-08-21] MEDS: INSULIN LISPRO 100 UNIT/1 ML 3ML VIAL SQ SCH ×3 (12:15→21:30)
[2021-08-21] MEDS: NPH, HUMAN INSULIN ISOPHANE 100 UNIT/1 ML 3ML VIAL SQ SCH (16:53)
[2021-08-21] MEDS ORDERED: APIXABAN 5 MG TABLET PO SCH (17:00)
[2021-08-22] VITALS (13 sets, daily range): BP systolic 113–134; BP diastolic 66–94
[2021-08-22] MEDS: INSULIN LISPRO 100 UNIT/1 ML 3ML VIAL SQ SCH ×4 (07:30→21:24)
[2021-08-22] MEDS: LEVOTHYROXINE SODIUM 25 MCG TABLET PO SCH (07:30)
[2021-08-22] MEDS: NPH, HUMAN INSULIN ISOPHANE 100 UNIT/1 ML 3ML VIAL SQ SCH ×3 (08:00→17:08)
[2021-08-22] MEDS: ENOXAPARIN SODIUM INJ 100 MG/ML SYR SC SCH ×2 (09:00→21:17)
[2021-08-22] MEDS: MAGNESIUM OXIDE 400 MG TAB PO SCH ×2 (09:00→17:00)
[2021-08-22] MEDS: BETAMETHASONE DIP AUG 0.05% CRM 15 GM TUBE TOP SCH (09:00)
[2021-08-22] MEDS: ASCORBIC ACID 500 MG TAB PO SCH ×4 (09:00→21:24)
[2021-08-22] MEDS ORDERED: FENTANYL CITRATE/PF 100MCG/2 ML INJ ONE (09:12)
[2021-08-22] MEDS ORDERED: HEPARIN SOD (PORCINE) 1000 UNIT/ML 30ML ONE (09:12)
[2021-08-22] MEDS ORDERED: LIDOCAINE HCL 2% LOCAL 20 ML VIAL ONE (09:12)
[2021-08-22] MEDS ORDERED: MIDAZOLAM HCL 2 MG/2 ML VIAL ONE (09:12)
[2021-08-22] MEDS ORDERED: IOPAMIDOL 370 MG/ML 200 ML INFUS..BTL INJ ONE (09:13)
[2021-08-22] MEDS ORDERED: HEPARIN SOD/SOD CHLORIDE 2,000 ML ONE (09:13)
[2021-08-22] MEDS ORDERED: SODIUM CHLORIDE 0.9% 1000ML 1,000 ML ONE (09:13)
[2021-08-22] MEDS ORDERED: NITROGLYCERIN/D5W 200 MCG/ML 250 ML ONE (09:13)
[2021-08-22] MEDS ORDERED: VERAPAMIL HCL 2.5 MG/ML 2 ML VIAL ONE (09:39)
[2021-08-22] MEDS: FUROSEMIDE 40 MG TAB PO SCH (12:49)
[2021-08-22] MEDS: LISINOPRIL 2.5 MG TAB PO SCH (12:49)
[2021-08-22] MEDS: CLOPIDOGREL BISULFATE 75 MG TAB PO SCH (12:49)
[2021-08-22] MEDS: RANOLAZINE 500 MG TABSR PO SCH (18:16)
[2021-08-22] MEDS: LORATADINE 10 MG TAB PO SCH (21:00)
[2021-08-23] VITALS: BP 117/70
[2021-08-23 04:00] VITALS: BP 130/82
[2021-08-23] MEDS ORDERED: METOPROLOL TART25 MG PO (05:47)
[2021-08-23] MEDS ORDERED: METOPROLOL SUCC25 MG PO (07:29)
[2021-08-23 08:27] VITALS: BP 99/81
[2021-08-23 08:48] VITALS: BP 99/81
[2021-08-23] MEDS: RANOLAZINE 500 MG TABSR PO SCH (09:00)
[2021-08-23] MEDS: LISINOPRIL 2.5 MG TAB PO SCH (09:00)
[2021-08-23] MEDS: MAGNESIUM OXIDE 400 MG TAB PO SCH (09:00)
[2021-08-23] MEDS: FUROSEMIDE 40 MG TAB PO SCH (09:00)
[2021-08-23] MEDS: BETAMETHASONE DIP AUG 0.05% CRM 15 GM TUBE TOP SCH (09:35)
[2021-08-23] MEDS: ASCORBIC ACID 500 MG TAB PO SCH (09:35)
[2021-08-23] MEDS: ENOXAPARIN SODIUM INJ 100 MG/ML SYR SC SCH (09:35)
[2021-08-23] MEDS: CLOPIDOGREL BISULFATE 75 MG TAB PO SCH (09:36)
[2021-08-23] MEDS: LEVOTHYROXINE SODIUM 25 MCG TABLET PO SCH (09:36)
[2021-08-23] MEDS: NPH, HUMAN INSULIN ISOPHANE 100 UNIT/1 ML 3ML VIAL SQ SCH (09:41)
[2021-08-23] MEDS: INSULIN LISPRO 100 UNIT/1 ML 3ML VIAL SQ SCH (09:41)
== END 2021-08-23 13:03 | disposition home or self-care (01) | DRG 280 ==
LOC: ER 09:52 → ERHOLD 11:17 → MED/SURG 12:35
PROVIDERS: ADMIT Family Medicine; ATTEND Family Medicine
PROC: 4A023N7 Measurement of Cardiac Sampling and Pressure, Left Heart, Percutaneous Approach (ICD-10-PCS; principal; 2021-08-22)
PROC: B2111ZZ Fluoroscopy of Multiple Coronary Arteries using Low Osmolar Contrast (ICD-10-PCS; 2021-08-22)
PROC: B2151ZZ Fluoroscopy of Left Heart using Low Osmolar Contrast (ICD-10-PCS; 2021-08-22)
DX: I21.4 Non-ST elevation (NSTEMI) myocardial infarction (principal); I50.23 Acute on chronic systolic (congestive) heart failure; I48.20 Chronic atrial fibrillation, unspecified; T82.855A Stenosis of coronary artery stent, initial encounter; I25.110 Atherosclerotic heart disease of native coronary artery with unstable angina pectoris; I11.0 Hypertensive heart disease with heart failure; E11.40 Type 2 diabetes mellitus with diabetic neuropathy, unspecified; I25.2 Old myocardial infarction; I25.10 Atherosclerotic heart disease of native coronary artery without angina pectoris; E78.5 Hyperlipidemia, unspecified; Z95.5 Presence of coronary angioplasty implant and graft; Z88.8 Allergy status to other drugs, medicaments and biological substances; Z09 Encounter for follow-up examination after completed treatment for conditions other than malignant neoplasm; Z86.718 Personal history of other venous thrombosis and embolism; Z95.810 Presence of automatic (implantable) cardiac defibrillator; Z82.49 Family history of ischemic heart disease and other diseases of the circulatory system; E66.9 Obesity, unspecified; Z79.01 Long term (current) use of anticoagulants; Z68.34 Body mass index [BMI] 34.0-34.9, adult; I25.5 Ischemic cardiomyopathy
CPT/HCPCS: 36415; 71045; 80048; 80053; 82948; 83880; 84484; 85025; 93005; 93458; 94799; 96372; 99152; 99153; 99284; C1887; J1644; J1650; J1815; J2001; J2250; J2920; J3010; J7030; Q9967; U0002

== ENCOUNTER 2021-10-03 20:17 | Emergency (ER) | payer MEDICARE, OTHER ==
[~2021-10-03] VITALS: Ht 179.1 cm; Wt 109.8 kg
[~2021-10-03 20:17] MED LIST changes: +COQ-1030 MG PO; +METOPROLOL SUCC25 MG PO; +METOPROLOL TART25 MG PO; +ZYRTEC10 M3 PO
[2021-10-03 22:10] VITALS: BP 136/95
== END 2021-10-03 22:12 | disposition home or self-care (01) ==
LOC: ER 20:56
DX: R60.9 Edema, unspecified (principal); M79.604 Pain in right leg; I50.9 Heart failure, unspecified; I48.91 Unspecified atrial fibrillation; I25.10 Atherosclerotic heart disease of native coronary artery without angina pectoris; E78.5 Hyperlipidemia, unspecified; E11.40 Type 2 diabetes mellitus with diabetic neuropathy, unspecified; Z86.718 Personal history of other venous thrombosis and embolism; Z79.899 Other long term (current) drug therapy; Z95.810 Presence of automatic (implantable) cardiac defibrillator
CPT/HCPCS: 93971; 99284

== ENCOUNTER 2021-10-25 20:35 | Emergency (ER) | payer MEDICARE, OTHER ==
[~2021-10-25] VITALS: Ht 177.8 cm; Wt 104.3 kg
[2021-10-25 23:40] VITALS: BP 145/88
== END 2021-10-25 23:41 | disposition home or self-care (01) ==
LOC: ER 20:45
DX: S00.83XA Contusion of other part of head, initial encounter (principal); S16.1XXA Strain of muscle, fascia and tendon at neck level, initial encounter; S39.012A Strain of muscle, fascia and tendon of lower back, initial encounter; W01.0XXA Fall on same level from slipping, tripping and stumbling without subsequent striking against object, initial encounter; Y93.01 Activity, walking, marching and hiking; Y92.89 Other specified places as the place of occurrence of the external cause; E11.40 Type 2 diabetes mellitus with diabetic neuropathy, unspecified; I10 Essential (primary) hypertension; I50.9 Heart failure, unspecified; I48.91 Unspecified atrial fibrillation; I25.2 Old myocardial infarction
CPT/HCPCS: 70450; 72125; 72128; 72131; 99284

== ENCOUNTER 2022-05-01 17:10 | Emergency (ER) | payer MEDICARE, OTHER ==
[~2022-05-01] VITALS: Ht 177.8 cm; Wt 104.3 kg
== END 2022-05-01 19:20 | disposition home or self-care (01) ==
LOC: ER 17:15
DX: S00.83XA Contusion of other part of head, initial encounter (principal); S16.1XXA Strain of muscle, fascia and tendon at neck level, initial encounter; S39.012A Strain of muscle, fascia and tendon of lower back, initial encounter; W01.0XXA Fall on same level from slipping, tripping and stumbling without subsequent striking against object, initial encounter; Y92.89 Other specified places as the place of occurrence of the external cause; I10 Essential (primary) hypertension; E11.40 Type 2 diabetes mellitus with diabetic neuropathy, unspecified; I50.9 Heart failure, unspecified; I48.91 Unspecified atrial fibrillation; I25.2 Old myocardial infarction
CPT/HCPCS: 70450; 72125; 72128; 72131; 99282

== ENCOUNTER → 2022-10-26 | Outpatient (CLI) | payer MEDICARE, OTHER | LOC: CT 10:23 | PROVIDERS: ATTEND Family Medicine | DX: I99.9 Unspecified disorder of circulatory system (principal); M54.32 Sciatica, left side | CPT/HCPCS: 72131; 93970 ==

== ENCOUNTER 2022-11-12 11:09 | Emergency (ER) | payer MEDICARE, OTHER ==
[~2022-11-12] VITALS: Ht 177.8 cm; Wt 104.3 kg
[2022-11-12] MEDS ORDERED: HYDROCODONE/APAP 5MG-325MG TAB PO ONE (12:00)
[2022-11-12 13:59] VITALS: BP 153/86
== END 2022-11-12 15:09 | disposition home or self-care (01) ==
LOC: ER 11:22
DX: M54.32 Sciatica, left side (principal); G89.29 Other chronic pain; I11.0 Hypertensive heart disease with heart failure; I50.9 Heart failure, unspecified; E11.9 Type 2 diabetes mellitus without complications; I25.2 Old myocardial infarction; I48.91 Unspecified atrial fibrillation; Z98.61 Coronary angioplasty status; Z88.6 Allergy status to analgesic agent; Z79.4 Long term (current) use of insulin; Z79.02 Long term (current) use of antithrombotics/antiplatelets; Z79.899 Other long term (current) drug therapy
CPT/HCPCS: 99283

== ENCOUNTER → 2023-07-06 | Outpatient (REF) | payer MEDICARE, OTHER | LOC: CT 08:48 → EDSTATUS 09:00 | PROVIDERS: ATTEND Physical Medicine & Rehabilitation Pain Medicine | DX: M47.896 Other spondylosis, lumbar region (principal); M54.50 Low back pain, unspecified | CPT/HCPCS: 72131 ==